=== PATIENT | female | born 1940 | race Asian ===

== ENCOUNTER 2017-03-23 09:59 | Inpatient (IN) | payer MEDICARE, OTHER ==
[~2017-03-23] VITALS: Ht 160 cm; Wt 56.2 kg
[~2017-03-23 09:59] MED LIST: ASPI-1159 PO; CALC667C4 PO; DORZ10DR9; MINO2.5T19; MONT10TA24 PO; NEPVIT PO; OMEP20CA4; PRAV40TA PO; PRED10DR OP; TIMO15DR12 LEFTEYE; XALAO RIGHTEYE
[2017-03-23] MEDS ORDERED: IPRATROPIUM/ALBUTEROL 0.5-3(2.5)MG/3ML NEB HHN ONE (10:45)
[2017-03-23] MEDS ORDERED: LEVOFLOXACIN 750MG PREMIX 150 ML IV ONE (10:45)
[2017-03-23 11:16] LABS: BASOPHILS % 1.1 % (0.0-2.0); EOSINOPHILS % 0.6 % (0.0-5.0); HEMATOCRIT. 33.9 % (36.0-48.0); HEMOGLOBIN. 11.4 g/dL (12.0-16.0); LYMPHOCYTES % 8.4 % (20.0-50.0); MEAN CORPUSCULAR VOLUME 94.8 fL (81.0-99.0); MEAN PLATELET VOLUME 8.6 fl (7.4-10.4); MONOCYTES % 9.3 % (2.0-8.0); NEUTROPHILS % 80.6 % (40.0-76.0); PLATELET 133 x1000/uL (130-400); RED BLOOD CELL COUNT 3.57 mill/uL (4.2-5.4); RED CELL DISTRIBUTION WIDTH 17.6 % (11.6-14.6)
[2017-03-23 11:27] LABS: D-DIMER 2.07 mg/L FEU (<0.50); INR 1.1; PARTIAL THROMBOPLASTIN TIME 25.5 sec (23.4-31.0); PROTHROMBIN TIME 11.8 sec (9.4-11.6)
[2017-03-23 11:34] LABS: CARBON DIOXIDE 34 mEq/L (21-32); CHLORIDE 96 mEq/L (98-107); CREATINE KINASE 111 IU/L (26-192); TROPONIN I 0.03 ng/mL (0.00-0.04)
[2017-03-23 14:01] VITALS: BP 177/68
[2017-03-23] MEDS ORDERED: ALBUTEROL (0.083%) 2.5MG/3ML NEB HHN PRN (15:45)
[2017-03-23 16:00] VITALS: BP 162/69
[2017-03-23] MEDS ORDERED: BISACODYL 5MG TABLET PO PRN (16:15)
[2017-03-23] MEDS ORDERED: ACETAMINOPHEN 325MG TABLET PO PRN (16:30)
[2017-03-23] MEDS ORDERED: SORBITOL 70% SOLN 30ML PO PRN (16:30)
[2017-03-23] MEDS ORDERED: ONDANSETRON HCL 4MG/2ML VIAL IV PRN (16:30)
[2017-03-23] MEDS ORDERED: DEXTROSE 50% WATER 50ML SYRINGE IV PRN ×2 (16:30→22:15)
[2017-03-23] MEDS: DOCUSATE SODIUM 100MG CAPSULE PO SCH (17:00)
[2017-03-23] MEDS: BLOOD SUGAR DIAGNOSTIC STRIP TEST SCH ×2 (17:20→21:00)
[2017-03-23] MEDS: INSULIN LISPRO 100 UNITS/ML SUBCUT SCH ×2 (17:20→22:10)
[2017-03-23] MEDS: MONTELUKAST SODIUM 10MG TABLET PO SCH (18:00)
[2017-03-23] MEDS: CALCIUM ACETATE 667MG CAPSULE PO SCH (18:20)
[2017-03-23] MEDS: METHYLPREDNISOLONE SOD SUCC 40 MG/ML VIAL IV SCH (19:20)
[2017-03-23 20:00] VITALS: BP_SYST 132; BP_SYST 160; BP_DIAS 65; BP_DIAS 67
[2017-03-23] MEDS: FLUOROMETHOLONE 0.1% LEFTEYE SCH (20:31)
[2017-03-23] MEDS ORDERED: SULFAMETHOXAZOLE/TRIMETHOPRIM 800/160MG TABLET PO SCH (21:00)
[2017-03-23] MEDS ORDERED: AMIODARONE HCL 200 MG TABLET PO SCH (21:00)
[2017-03-23 22:00] VITALS: BP 148/56
[2017-03-23] MEDS: ATORVASTATIN CALCIUM 40MG TABLET PO SCH (22:00)
[2017-03-23] MEDS: MINOXIDIL 2.5MG TABLET PO SCH (22:01)
[2017-03-23] MEDS: DORZOLAM/TIMOLOL 2.23/0.68% OPHTH DROPS 10ML LEFTEYE SCH (22:01)
[2017-03-23] MEDS: GUAIFENESIN 600MG ER TABLET PO SCH (22:10)
[2017-03-24] VITALS (11 sets, daily range): BP systolic 126–167; BP diastolic 41–74
[2017-03-24] MEDS: CEFTRIAXONE 1 G PREMIX 50 ML IV SCH ×2 (00:43→22:11)
[2017-03-24] MEDS: FLUOROMETHOLONE 0.1% LEFTEYE SCH ×5 (00:44→23:11)
[2017-03-24] MEDS: BENZONATATE 100MG CAPSULE PO PRN ×2 (01:23→14:38)
[2017-03-24] MEDS: ZOLPIDEM TARTRATE 5MG TABLET PO PRN (01:23)
[2017-03-24] MEDS: IPRATROPIUM/ALBUTEROL 0.5-3(2.5)MG/3ML NEB HHN SCH ×6 (04:45→20:02)
[2017-03-24] MEDS ORDERED: LEVOFLOXACIN 250MG PREMIX 50 ML IV SCH (06:00)
[2017-03-24] MEDS: METHYLPREDNISOLONE SOD SUCC 40 MG/ML VIAL IV SCH ×2 (06:15→17:26)
[2017-03-24] MEDS: BLOOD SUGAR DIAGNOSTIC STRIP TEST SCH ×4 (06:22→21:54)
[2017-03-24 07:10] LABS: HEMOGLOBIN. 11.7 g/dL (12.0-16.0); MEAN CORPUSCULAR HEMOGLOBIN 32.1 pg (28.0-32.0); MEAN PLATELET VOLUME 9.6 fl (7.4-10.4); PLATELET 142 x1000/uL (130-400); RED BLOOD CELL COUNT 3.65 mill/uL (4.2-5.4); RED CELL DISTRIBUTION WIDTH 16.9 % (11.6-14.6)
[2017-03-24] MEDS ORDERED: INSULIN LISPRO 100 UNITS/ML SUBCUT SCH (07:20)
[2017-03-24 07:39] LABS: CARBON DIOXIDE 31 mEq/L (21-32); CHLORIDE 98 mEq/L (98-107); PHOSPHORUS 1.5 mg/dL (2.5-4.9); TROPONIN I < 0.02 ng/mL (0.00-0.04)
[2017-03-24] MEDS: CALCIUM ACETATE 667MG CAPSULE PO SCH ×3 (08:23→17:26)
[2017-03-24] MEDS: ASPIRIN 81MG TABLET PO SCH (08:48)
[2017-03-24] MEDS: DOCUSATE SODIUM 100MG CAPSULE PO SCH ×2 (08:49→17:04)
[2017-03-24] MEDS: JANUVIA 100 MG TABLET PO SCH (08:49)
[2017-03-24] MEDS: FOLIC ACID/VITAMIN B COMP W-C TABLET PO SCH (08:49)
[2017-03-24] MEDS: GUAIFENESIN 600MG ER TABLET PO SCH ×2 (08:49→22:12)
[2017-03-24] MEDS: MINOXIDIL 2.5MG TABLET PO SCH ×2 (08:50→22:11)
[2017-03-24] MEDS ORDERED: LINAGLIPTIN 5MG TABLET PO SCH (09:00)
[2017-03-24] MEDS ORDERED: JANUVIA 100 MG PO SCH (09:00)
[2017-03-24] MEDS: DORZOLAM/TIMOLOL 2.23/0.68% OPHTH DROPS 10ML LEFTEYE SCH ×2 (09:22→22:11)
[2017-03-24 11:20] LABS: BG BASE EXCESS 3.4 mmol/L (-2.0-2.0); BG CARBOXYHEMOGLOBIN 1.5 % (0.5-1.5); BG DEOXYHEMOGLOBIN 6.9 % (0.0-5.0); BG FRACTION INSPIRED OXYGEN 21; BG HCO3 ACT 27.4 mmol/L (22.0-26.0); BG METHEMOGLOBIN 0.1 % (0.0-1.5); BG OXYHEMOGLOBIN 91.5 % (94.0-97.0); BG PCO2 39.2 mmHg (35.0-45.0); BG PH 7.462 (7.350-7.450); BG PO2 64.3 mmHg (75.0-100.0); BG SAMPLE SITE LEFT BRACHIAL; BG TOTAL HEMOGLOBIN 12.1 g/dL (12.0-18.0); BG VENT MODE ROOM AIR
[2017-03-24] MEDS ORDERED: SODIUM CHLORIDE 0.9% 10ML VIAL ONE (12:07)
[2017-03-24] MEDS ORDERED: IOHEXOL-350 100 ML BOTTLE ONE (12:07)
[2017-03-24] MEDS: INSULIN LISPRO 100 UNITS/ML SUBCUT SCH ×3 (12:57→22:15)
[2017-03-24] MEDS: MONTELUKAST SODIUM 10MG TABLET PO SCH (17:04)
[2017-03-24 22:06] LABS: PLATELET ESTIMATE NORMAL
[2017-03-24] MEDS: ATORVASTATIN CALCIUM 40MG TABLET PO SCH (22:12)
[2017-03-24] MEDS: GUAIFENESIN/CODEINE 200-20MG/10ML UDC PO PRN (23:11)
[2017-03-25] VITALS (12 sets, daily range): BP systolic 112–168; BP diastolic 39–71
[2017-03-25] MEDS: IPRATROPIUM/ALBUTEROL 0.5-3(2.5)MG/3ML NEB HHN SCH ×6 (00:22→20:13)
[2017-03-25] MEDS ORDERED: LEVOFLOXACIN 250MG PREMIX 50 ML IV SCH (06:00)
[2017-03-25] MEDS: FLUOROMETHOLONE 0.1% LEFTEYE SCH ×4 (06:07→23:29)
[2017-03-25] MEDS: BLOOD SUGAR DIAGNOSTIC STRIP TEST SCH ×4 (06:07→20:39)
[2017-03-25] MEDS: METHYLPREDNISOLONE SOD SUCC 40 MG/ML VIAL IV SCH ×2 (06:07→06:10)
[2017-03-25] MEDS: FOLIC ACID/VITAMIN B COMP W-C TABLET PO SCH (08:04)
[2017-03-25] MEDS: GUAIFENESIN 600MG ER TABLET PO SCH ×2 (08:04→20:41)
[2017-03-25] MEDS: CALCIUM ACETATE 667MG CAPSULE PO SCH ×3 (08:04→17:21)
[2017-03-25] MEDS: ASPIRIN 81MG TABLET PO SCH (08:04)
[2017-03-25] MEDS: MINOXIDIL 2.5MG TABLET PO SCH ×2 (08:04→20:41)
[2017-03-25] MEDS: DOCUSATE SODIUM 100MG CAPSULE PO SCH ×2 (08:04→17:21)
[2017-03-25 08:05] LABS: HEMATOCRIT. 34.4 % (36.0-48.0); HEMOGLOBIN. 11.4 g/dL (12.0-16.0); MEAN CORPUSCULAR HEMOGLOBIN 31.8 pg (28.0-32.0); MEAN CORPUSCULAR VOLUME 95.7 fL (81.0-99.0); MEAN PLATELET VOLUME 8.9 fl (7.4-10.4); PLATELET 156 x1000/uL (130-400); RED BLOOD CELL COUNT 3.59 mill/uL (4.2-5.4); RED CELL DISTRIBUTION WIDTH 17.6 % (11.6-14.6)
[2017-03-25] MEDS: DORZOLAM/TIMOLOL 2.23/0.68% OPHTH DROPS 10ML LEFTEYE SCH ×2 (08:05→20:41)
[2017-03-25] MEDS: JANUVIA 100 MG TABLET PO SCH (08:05)
[2017-03-25] MEDS: INSULIN LISPRO 100 UNITS/ML SUBCUT SCH ×4 (08:06→20:39)
[2017-03-25 09:49] LABS: PLATELET ESTIMATE NORMAL
[2017-03-25] MEDS: GUAIFENESIN/CODEINE 200-20MG/10ML UDC PO PRN (11:29)
[2017-03-25] MEDS: MONTELUKAST SODIUM 10MG TABLET PO SCH (17:21)
[2017-03-25] MEDS: PREDNISONE 20MG TABLET PO SCH (17:22)
[2017-03-25] MEDS: CEFTRIAXONE 1 G PREMIX 50 ML IV SCH (20:40)
[2017-03-25] MEDS: ATORVASTATIN CALCIUM 40MG TABLET PO SCH (20:41)
[2017-03-25] MEDS: BENZONATATE 100MG CAPSULE PO PRN (20:43)
[2017-03-25] MEDS: ZOLPIDEM TARTRATE 5MG TABLET PO PRN (23:41)
[2017-03-26] VITALS (11 sets, daily range): BP systolic 131–172; BP diastolic 46–79
[2017-03-26] MEDS: IPRATROPIUM/ALBUTEROL 0.5-3(2.5)MG/3ML NEB HHN SCH ×5 (00:15→13:04)
[2017-03-26] MEDS ORDERED: HYDRALAZINE 20MG/ML VIAL IV PRN (04:00)
[2017-03-26] MEDS: BLOOD SUGAR DIAGNOSTIC STRIP TEST SCH ×4 (06:27→20:48)
[2017-03-26] MEDS: FLUOROMETHOLONE 0.1% LEFTEYE SCH ×4 (06:27→23:31)
[2017-03-26 07:36] LABS: HEMATOCRIT. 35.1 % (36.0-48.0); HEMOGLOBIN. 11.7 g/dL (12.0-16.0); MEAN CORPUSCULAR HEMOGLOBIN 32.1 pg (28.0-32.0); MEAN CORPUSCULAR VOLUME 96.6 fL (81.0-99.0); MEAN PLATELET VOLUME 9.1 fl (7.4-10.4); PLATELET 167 x1000/uL (130-400); RED BLOOD CELL COUNT 3.63 mill/uL (4.2-5.4); RED CELL DISTRIBUTION WIDTH 17.7 % (11.6-14.6)
[2017-03-26] MEDS: PREDNISONE 20MG TABLET PO SCH ×2 (07:53→17:31)
[2017-03-26] MEDS: INSULIN LISPRO 100 UNITS/ML SUBCUT SCH ×4 (07:53→22:02)
[2017-03-26] MEDS: CALCIUM ACETATE 667MG CAPSULE PO SCH ×3 (07:53→17:31)
[2017-03-26 08:22] LABS: CARBON DIOXIDE 32 mEq/L (21-32); CHLORIDE 94 mEq/L (98-107); TROPONIN I < 0.02 ng/mL (0.00-0.04)
[2017-03-26] MEDS: GUAIFENESIN 600MG ER TABLET PO SCH ×2 (08:53→21:58)
[2017-03-26] MEDS: FOLIC ACID/VITAMIN B COMP W-C TABLET PO SCH (08:53)
[2017-03-26] MEDS: DOCUSATE SODIUM 100MG CAPSULE PO SCH ×2 (08:53→17:31)
[2017-03-26] MEDS: ASPIRIN 81MG TABLET PO SCH (08:53)
[2017-03-26] MEDS: JANUVIA 100 MG TABLET PO SCH (08:54)
[2017-03-26] MEDS: MINOXIDIL 2.5MG TABLET PO SCH ×2 (08:54→21:59)
[2017-03-26] MEDS: DORZOLAM/TIMOLOL 2.23/0.68% OPHTH DROPS 10ML LEFTEYE SCH ×2 (08:54→22:00)
[2017-03-26 12:14] LABS: PLATELET ESTIMATE NORMAL
[2017-03-26] MEDS: MONTELUKAST SODIUM 10MG TABLET PO SCH (17:31)
[2017-03-26] MEDS: FLUTICASONE/VILANTEROL 200-25 BLST.W.DEV ORI SCH (21:54)
[2017-03-26] MEDS: CEFTRIAXONE 1 G PREMIX 50 ML IV SCH (21:59)
[2017-03-26] MEDS: ATORVASTATIN CALCIUM 20MG TABLET PO SCH (21:59)
[2017-03-26] MEDS: ZOLPIDEM TARTRATE 5MG TABLET PO PRN (23:29)
[2017-03-27] VITALS (14 sets, daily range): BP systolic 128–183; BP diastolic 50–83
[2017-03-27] MEDS: FLUOROMETHOLONE 0.1% LEFTEYE SCH ×4 (05:18→23:00)
[2017-03-27] MEDS: BLOOD SUGAR DIAGNOSTIC STRIP TEST SCH ×4 (06:48→20:04)
[2017-03-27 07:47] LABS: HEMATOCRIT. 36.9 % (36.0-48.0); HEMOGLOBIN. 12.2 g/dL (12.0-16.0); MEAN CORPUSCULAR HEMOGLOBIN 32.3 pg (28.0-32.0); MEAN CORPUSCULAR VOLUME 97.6 fL (81.0-99.0); MEAN PLATELET VOLUME 8.7 fl (7.4-10.4); PLATELET 152 x1000/uL (130-400); RED BLOOD CELL COUNT 3.78 mill/uL (4.2-5.4); RED CELL DISTRIBUTION WIDTH 18.1 % (11.6-14.6)
[2017-03-27] MEDS: INSULIN LISPRO 100 UNITS/ML SUBCUT SCH ×4 (07:51→21:03)
[2017-03-27] MEDS: PREDNISONE 20MG TABLET PO SCH ×2 (07:51→16:47)
[2017-03-27] MEDS: CALCIUM ACETATE 667MG CAPSULE PO SCH (07:52)
[2017-03-27] MEDS: GUAIFENESIN 600MG ER TABLET PO SCH ×2 (08:02→21:06)
[2017-03-27] MEDS: FOLIC ACID/VITAMIN B COMP W-C TABLET PO SCH (08:02)
[2017-03-27] MEDS: ASPIRIN 81MG TABLET PO SCH (08:02)
[2017-03-27] MEDS: DOCUSATE SODIUM 100MG CAPSULE PO SCH ×2 (08:03→16:46)
[2017-03-27] MEDS: MINOXIDIL 2.5MG TABLET PO SCH ×2 (08:05→21:06)
[2017-03-27] MEDS: DORZOLAM/TIMOLOL 2.23/0.68% OPHTH DROPS 10ML LEFTEYE SCH ×2 (08:06→21:05)
[2017-03-27] MEDS: FLUTICASONE/VILANTEROL 200-25 BLST.W.DEV ORI SCH (08:07)
[2017-03-27] MEDS: LINAGLIPTIN 5MG TABLET PO SCH (13:05)
[2017-03-27] MEDS: AMLODIPINE 5MG TABLET PO SCH ×2 (13:05→21:04)
[2017-03-27 14:09] LABS: PLATELET ESTIMATE NORMAL
[2017-03-27] MEDS: MONTELUKAST SODIUM 10MG TABLET PO SCH (16:47)
[2017-03-27] MEDS: ATORVASTATIN CALCIUM 20MG TABLET PO SCH (21:05)
[2017-03-27] MEDS: CEFTRIAXONE 1 G PREMIX 50 ML IV SCH (21:26)
[2017-03-27] MEDS: GUAIFENESIN/CODEINE 200-20MG/10ML UDC PO PRN (23:00)
[2017-03-28] VITALS (11 sets, daily range): BP systolic 142–174; BP diastolic 55–69
[2017-03-28] MEDS: FLUOROMETHOLONE 0.1% LEFTEYE SCH ×2 (05:51→12:59)
[2017-03-28] MEDS: BLOOD SUGAR DIAGNOSTIC STRIP TEST SCH ×3 (05:53→16:50)
[2017-03-28] MEDS: DORZOLAM/TIMOLOL 2.23/0.68% OPHTH DROPS 10ML LEFTEYE SCH (08:09)
[2017-03-28] MEDS: FLUTICASONE/VILANTEROL 200-25 BLST.W.DEV ORI SCH (08:13)
[2017-03-28] MEDS: DOCUSATE SODIUM 100MG CAPSULE PO SCH ×2 (08:14→16:51)
[2017-03-28] MEDS: ASPIRIN 81MG TABLET PO SCH (08:14)
[2017-03-28] MEDS: GUAIFENESIN 600MG ER TABLET PO SCH (08:14)
[2017-03-28] MEDS: INSULIN LISPRO 100 UNITS/ML SUBCUT SCH ×3 (08:14→16:51)
[2017-03-28] MEDS: FOLIC ACID/VITAMIN B COMP W-C TABLET PO SCH (08:14)
[2017-03-28] MEDS: PREDNISONE 20MG TABLET PO SCH (08:14)
[2017-03-28] MEDS: LINAGLIPTIN 5MG TABLET PO SCH (08:14)
[2017-03-28] MEDS: AMLODIPINE 5MG TABLET PO SCH (08:15)
[2017-03-28] MEDS: MINOXIDIL 2.5MG TABLET PO SCH (08:16)
[2017-03-28] MEDS ORDERED: MINOXIDIL 2.5MG TABLET PO SCH (14:00)
[2017-03-28] MEDS: MONTELUKAST SODIUM 10MG TABLET PO SCH (16:50)
[2017-03-28] MEDS ORDERED: INSULIN DETEMIR UD 100 UNITS/ML SYR SUBCUT SCH (22:00)
[2017-03-29] MEDS ORDERED: PREDNISONE 20MG TABLET PO SCH (07:20)
== END 2017-03-28 17:15 | disposition home or self-care (01) | DRG 291 ==
LOC: ER 10:41 → 3WST 12:16 → EDBEDREQ 12:19 → ENRESERV 12:54
PROVIDERS: ADMIT Internal Medicine Nephrology; ATTEND Internal Medicine Nephrology
PROC: 5A1D60Z (ICD-10-PCS; principal; 2017-03-24)
DX: I50.43 Acute on chronic combined systolic (congestive) and diastolic (congestive) heart failure (principal); J96.90 Respiratory failure, unspecified, unspecified whether with hypoxia or hypercapnia; J18.9 Pneumonia, unspecified organism; I27.2 Other secondary pulmonary hypertension; N18.6 End stage renal disease; J44.0 Chronic obstructive pulmonary disease with (acute) lower respiratory infection; E11.21 Type 2 diabetes mellitus with diabetic nephropathy; E11.65 Type 2 diabetes mellitus with hyperglycemia; I13.2 Hypertensive heart and chronic kidney disease with heart failure and with stage 5 chronic kidney disease, or end stage renal disease; J45.909 Unspecified asthma, uncomplicated; I45.81 Long QT syndrome; R00.1 Bradycardia, unspecified; I48.0 Paroxysmal atrial fibrillation; E21.3 Hyperparathyroidism, unspecified; J20.9 Acute bronchitis, unspecified; R79.1 Abnormal coagulation profile; D63.1 Anemia in chronic kidney disease; E78.5 Hyperlipidemia, unspecified; E11.22 Type 2 diabetes mellitus with diabetic chronic kidney disease; I25.10 Atherosclerotic heart disease of native coronary artery without angina pectoris; Z82.49 Family history of ischemic heart disease and other diseases of the circulatory system; Z83.3 Family history of diabetes mellitus; Z87.01 Personal history of pneumonia (recurrent); Z79.899 Other long term (current) drug therapy; Z99.2 Dependence on renal dialysis; Z99.81 Dependence on supplemental oxygen; Z79.82 Long term (current) use of aspirin; Z91.048 Other nonmedicinal substance allergy status; Z79.84 Long term (current) use of oral hypoglycemic drugs
CPT/HCPCS: 36415; 36600; 71010; 71275; 80048; 80053; 82375; 82550; 82805; 82962; 83036; 83605; 83690; 83735; 83880; 84100; 84443; 84484; 85025; 85379; 85610; 85730; 87040; 93005; 93306; 94640; 94664; 94760; 96365; 96366; 97162; 99285; A4216; J0360; J0696; J1815; J1956; J2405; J2920; J7030; J7050; J7512; J7611; J7620; Q9967

== ENCOUNTER 2017-10-16 09:33 | Inpatient (IN) | payer MEDICARE, OTHER ==
[~2017-10-16] VITALS: Ht 165.1 cm; Wt 56.7 kg
[2017-10-16] VITALS (36 sets, daily range): BP systolic 98–149; BP diastolic 39–111
[2017-10-16] MEDS ORDERED: DEXTROSE 50% WATER 50ML SYRINGE IV ONE (10:30)
[2017-10-16] MEDS ORDERED: SODIUM BICARBONATE 8.4% 1 MEQ/ML 50ML SYR IV ONE (10:30)
[2017-10-16] MEDS ORDERED: INSULIN REGULAR (HUMULIN R) 300UNITS/3ML IV ONE (10:30)
[2017-10-16] MEDS ORDERED: CALCIUM CHLORIDE 1GM/10ML SYR IV ONE (10:30)
[2017-10-16 10:32] LABS: BG BASE EXCESS 2.6 mmol/L (-2.0-2.0); BG CARBOXYHEMOGLOBIN 1.1 % (0.5-1.5); BG DEOXYHEMOGLOBIN 6.9 % (0.0-5.0); BG HCO3 ACT 26.3 mmol/L (22.0-26.0); BG METHEMOGLOBIN 0.3 % (0.0-1.5); BG OXYHEMOGLOBIN 91.7 % (94.0-97.0); BG PCO2 37.2 mmHg (35.0-45.0); BG PH 7.467 (7.350-7.450); BG SAMPLE SITE LEFT RADIAL; BG VENT MODE ROOM AIR
[2017-10-16 10:54] LABS: BASOPHILS % 0.9 % (0.0-2.0); EOSINOPHILS % 1.6 % (0.0-5.0); HEMATOCRIT. 33.7 % (36.0-48.0); HEMOGLOBIN. 11.6 g/dL (12.0-16.0); LYMPHOCYTES % 9.7 % (20.0-50.0); MEAN CORPUSCULAR HEMOGLOBIN 34.6 pg (28.0-32.0); MEAN CORPUSCULAR VOLUME 100.4 fL (81.0-99.0); MEAN PLATELET VOLUME 8.4 fl (7.4-10.4); MONOCYTES % 8.7 % (2.0-8.0); NEUTROPHILS % 79.1 % (40.0-76.0); PLATELET 217 x1000/uL (130-400); RED BLOOD CELL COUNT 3.36 mill/uL (4.2-5.4); RED CELL DISTRIBUTION WIDTH 14.6 % (11.6-14.6)
[2017-10-16 11:03] LABS: CHLORIDE 93 mEq/L (98-107)
[2017-10-16 11:09] LABS: PHOSPHORUS 5.1 mg/dL (2.5-4.9)
[2017-10-16 11:13] LABS: PARTIAL THROMBOPLASTIN TIME 26.6 sec (23.4-31.0); PROTHROMBIN TIME 10.8 sec (9.4-11.6)
[2017-10-16] MEDS ORDERED: DOPAMINE 400MG PREMIX 250 ML IV ONE (13:15)
[2017-10-16] MEDS ORDERED: HYDRALAZINE 20MG/ML VIAL IV PRN (14:00)
[2017-10-16] MEDS ORDERED: ONDANSETRON HCL 4MG/2ML VIAL IV NR (14:15)
[2017-10-16] MEDS ORDERED: ONDANSETRON HCL 4MG/2ML VIAL IV PRN (14:30)
[2017-10-16] MEDS ORDERED: IPRATROPIUM/ALBUTEROL 0.5-3(2.5)MG/3ML NEB INH PRN (14:30)
[2017-10-16] MEDS ORDERED: MAGNESIUM/ALUMINUM HYDROXIDE/SIMETHICONE 30ML UDC PO PRN (14:30)
[2017-10-16] MEDS ORDERED: GUAIFENESIN 200MG/10ML SUGAR FREE UDC PO PRN (14:30)
[2017-10-16] MEDS ORDERED: DEXTROSE 50% WATER 50ML SYRINGE IV PRN (15:30)
[2017-10-16] MEDS: BLOOD SUGAR DIAGNOSTIC STRIP TEST SCH ×2 (17:00→21:25)
[2017-10-16] MEDS: INSULIN LISPRO 100 UNITS/ML SUBCUT SCH ×2 (18:37→21:27)
[2017-10-16] MEDS: AMLODIPINE 5MG TABLET PO SCH (21:28)
[2017-10-17] VITALS (53 sets, daily range): BP systolic 55–162; BP diastolic 28–70
[2017-10-17 05:52] LABS: CHLORIDE 93 mEq/L (98-107)
[2017-10-17 06:00] LABS: PHOSPHORUS 4.8 mg/dL (2.5-4.9)
[2017-10-17 06:28] LABS: BASOPHILS % 1.1 % (0.0-2.0); EOSINOPHILS % 1.3 % (0.0-5.0); HEMOGLOBIN. 11.5 g/dL (12.0-16.0); LYMPHOCYTES % 8.4 % (20.0-50.0); MEAN CORPUSCULAR HEMOGLOBIN 34.5 pg (28.0-32.0); MEAN CORPUSCULAR VOLUME 98.9 fL (81.0-99.0); MEAN PLATELET VOLUME 9.1 fl (7.4-10.4); MONOCYTES % 9.1 % (2.0-8.0); NEUTROPHILS % 80.1 % (40.0-76.0); PLATELET 227 x1000/uL (130-400); RED BLOOD CELL COUNT 3.33 mill/uL (4.2-5.4); RED CELL DISTRIBUTION WIDTH 14.5 % (11.6-14.6)
[2017-10-17] MEDS: BLOOD SUGAR DIAGNOSTIC STRIP TEST SCH ×4 (06:30→21:00)
[2017-10-17] MEDS: OMEPRAZOLE 20MG CAPSULE EXTENDED RELEASE PO SCH (06:30)
[2017-10-17] MEDS: INSULIN LISPRO 100 UNITS/ML SUBCUT SCH ×5 (07:00→21:14)
[2017-10-17] MEDS: AMLODIPINE 5MG TABLET PO SCH ×2 (08:01→20:32)
[2017-10-17] MEDS: FOLIC ACID/VITAMIN B COMP W-C TABLET PO SCH (11:20)
[2017-10-17] MEDS: SEVELAMER CARBONATE 800 MG TABLET PO SCH ×3 (11:20→18:46)
[2017-10-17] MEDS ORDERED: ALBUTEROL (0.083%) 2.5MG/3ML NEB HHN SCH (14:00)
[2017-10-17] MEDS ORDERED: BUDESONIDE 0.5MG/2ML NEB HHN SCH (15:00)
[2017-10-17] MEDS: ATORVASTATIN CALCIUM 20MG TABLET PO SCH (21:03)
[2017-10-17] MEDS: MONTELUKAST SODIUM 10MG TABLET PO SCH (21:04)
[2017-10-17] MEDS: LATANOPROST 0.005% OPHTH DROPS 2.5ML RIGHTEYE SCH (22:20)
[2017-10-18] VITALS: BP 153/50
[2017-10-18] MEDS ORDERED: ACETAMINOPHEN 325MG TABLET PO PRN (01:15)
[2017-10-18] MEDS ORDERED: HYDROCODONE/ACETAMINOPHEN 5/325MG TABLET PO PRN (01:15)
[2017-10-18 04:00] VITALS: BP 124/48
[2017-10-18] MEDS: BLOOD SUGAR DIAGNOSTIC STRIP TEST SCH ×4 (06:37→20:29)
[2017-10-18] MEDS: INSULIN LISPRO 100 UNITS/ML SUBCUT SCH ×4 (06:38→20:30)
[2017-10-18] MEDS: OMEPRAZOLE 20MG CAPSULE EXTENDED RELEASE PO SCH (06:51)
[2017-10-18 07:43] LABS: EOSINOPHILS % 1.9 % (0.0-5.0); HEMATOCRIT. 31.9 % (36.0-48.0); LYMPHOCYTES % 13.4 % (20.0-50.0); MEAN CORPUSCULAR HEMOGLOBIN 34.2 pg (28.0-32.0); MEAN CORPUSCULAR VOLUME 99.6 fL (81.0-99.0); MEAN PLATELET VOLUME 8.7 fl (7.4-10.4); MONOCYTES % 12.9 % (2.0-8.0); NEUTROPHILS % 70.8 % (40.0-76.0); PLATELET 179 x1000/uL (130-400); RED BLOOD CELL COUNT 3.21 mill/uL (4.2-5.4); RED CELL DISTRIBUTION WIDTH 14.6 % (11.6-14.6)
[2017-10-18 07:53] LABS: PHOSPHORUS 4.5 mg/dL (2.5-4.9)
[2017-10-18 08:33] VITALS: BP 110/58
[2017-10-18] MEDS: AMLODIPINE 5MG TABLET PO SCH ×2 (09:00→20:47)
[2017-10-18] MEDS: SEVELAMER CARBONATE 800 MG TABLET PO SCH ×3 (10:21→16:54)
[2017-10-18] MEDS: FOLIC ACID/VITAMIN B COMP W-C TABLET PO SCH (10:21)
[2017-10-18 12:00] VITALS: BP 168/55
[2017-10-18] MEDS ORDERED: BRIN8DRO OP (12:51)
[2017-10-18 13:14] LABS: HEPATITIS B SURFACE ANTIGEN NEGATIVE
[2017-10-18 13:42] LABS: HEPATITIS B CORE AB IGM NEGATIVE
[2017-10-18 13:44] LABS: HEPATITIS A AB IGM NEGATIVE (NEGATIVE)
[2017-10-18 16:04] VITALS: BP 162/58
[2017-10-18 20:00] VITALS: BP 124/37
[2017-10-18] MEDS: MONTELUKAST SODIUM 10MG TABLET PO SCH (20:46)
[2017-10-18] MEDS: ATORVASTATIN CALCIUM 20MG TABLET PO SCH (20:46)
[2017-10-18] MEDS: LATANOPROST 0.005% OPHTH DROPS 2.5ML RIGHTEYE SCH (20:46)
[2017-10-19 04:00] VITALS: BP 130/38
[2017-10-19] MEDS: INSULIN LISPRO 100 UNITS/ML SUBCUT SCH ×2 (06:09→11:50)
[2017-10-19] MEDS: BLOOD SUGAR DIAGNOSTIC STRIP TEST SCH ×2 (06:09→11:50)
[2017-10-19] MEDS: OMEPRAZOLE 20MG CAPSULE EXTENDED RELEASE PO SCH (06:16)
[2017-10-19 07:46] LABS: BASOPHILS % 0.7 % (0.0-2.0); EOSINOPHILS % 1.5 % (0.0-5.0); HEMATOCRIT. 31.4 % (36.0-48.0); HEMOGLOBIN. 10.6 g/dL (12.0-16.0); LYMPHOCYTES % 11.7 % (20.0-50.0); MEAN CORPUSCULAR HEMOGLOBIN 33.7 pg (28.0-32.0); MEAN CORPUSCULAR VOLUME 99.7 fL (81.0-99.0); MEAN PLATELET VOLUME 8.6 fl (7.4-10.4); NEUTROPHILS % 75.1 % (40.0-76.0); PLATELET 161 x1000/uL (130-400); RED BLOOD CELL COUNT 3.15 mill/uL (4.2-5.4); RED CELL DISTRIBUTION WIDTH 14.3 % (11.6-14.6)
[2017-10-19 08:00] VITALS: BP 162/45
[2017-10-19] MEDS: AMLODIPINE 5MG TABLET PO SCH (08:09)
[2017-10-19] MEDS: FOLIC ACID/VITAMIN B COMP W-C TABLET PO SCH (08:10)
[2017-10-19] MEDS: SEVELAMER CARBONATE 800 MG TABLET PO SCH ×2 (08:10→11:50)
[2017-10-19 08:38] LABS: CHLORIDE 101 mEq/L (98-107)
[2017-10-19 12:00] VITALS: BP 178/61
[2017-10-19 13:51] VITALS: BP 143/61
[2017-10-19 16:00] VITALS: BP 166/69
[2017-10-19 18:06] LABS: TOTAL IRON BINDING CAPACITY 252 ug/dL (250-450)
[2017-10-19 18:20] LABS: FOLIC ACID (FOLATE) SERUM >20 ng/mL ng/mL (>5.38)
[2017-10-19 18:21] LABS: FERRITIN 761 ng/mL (10-291)
[2017-10-19 18:36] LABS: VITAMIN B12 SERUM > 2000.0 pg/mL (211-911)
[2017-10-20] MEDS ORDERED: FAMOTIDINE 20MG TABLET PO SCH (09:00)
== END 2017-10-19 17:20 | disposition home or self-care (01) | DRG 640 ==
LOC: ER 10:40 → SUPCPDRO 11:38 → MICUSO 13:12 → EDBEDREQTM 13:14 → EDBEDREQSVC 13:14 → ENRESERV 13:41 → 8WST 10-17 17:29
PROVIDERS: ADMIT Family Medicine Adult Medicine; ATTEND Family Medicine Adult Medicine
PROC: 05HY33Z Insertion of Infusion Device into Upper Vein, Percutaneous Approach (ICD-10-PCS; principal; 2017-10-16)
PROC: 5A1D70Z Performance of Urinary Filtration, Intermittent, Less than 6 Hours Per Day (ICD-10-PCS; 2017-10-16)
PROC: 5A1D70Z Performance of Urinary Filtration, Intermittent, Less than 6 Hours Per Day (ICD-10-PCS; 2017-10-17)
PROC: 5A1D70Z Performance of Urinary Filtration, Intermittent, Less than 6 Hours Per Day (ICD-10-PCS; 2017-10-18)
DX: E87.5 Hyperkalemia (principal); N18.6 End stage renal disease; N17.9 Acute kidney failure, unspecified; E87.2 Acidosis; E11.22 Type 2 diabetes mellitus with diabetic chronic kidney disease; E44.1 Mild protein-calorie malnutrition; I08.1 Rheumatic disorders of both mitral and tricuspid valves; E87.70 Fluid overload, unspecified; G40.909 Epilepsy, unspecified, not intractable, without status epilepticus; I48.0 Paroxysmal atrial fibrillation; I13.11 Hypertensive heart and chronic kidney disease without heart failure, with stage 5 chronic kidney disease, or end stage renal disease; I27.20 Pulmonary hypertension, unspecified; J44.9 Chronic obstructive pulmonary disease, unspecified; E78.00 Pure hypercholesterolemia, unspecified; K76.0 Fatty (change of) liver, not elsewhere classified; R00.1 Bradycardia, unspecified; E78.5 Hyperlipidemia, unspecified; D63.1 Anemia in chronic kidney disease; E03.9 Hypothyroidism, unspecified; Z99.2 Dependence on renal dialysis; Z87.01 Personal history of pneumonia (recurrent); Z79.82 Long term (current) use of aspirin; Z79.899 Other long term (current) drug therapy; Z68.20 Body mass index [BMI] 20.0-20.9, adult
CPT/HCPCS: 36415; 36569; 36600; 71045; 76700; 76937; 80048; 80053; 80076; 82248; 82375; 82607; 82728; 82746; 82805; 82962; 83540; 83550; 83605; 83690; 83735; 83970; 84100; 84439; 84443; 84481; 84484; 85025; 85610; 85730; 86705; 86709; 86803; 87040; 87340; 93005; 93306; 93970; 93971; 96374; 96375; 97116; 97162; 99291; C1725; J0360; J1265; J1815; J2405; J3490; J7030

== ENCOUNTER 2018-08-01 15:57 | Inpatient (IN) | payer MEDICARE, OTHER ==
[~2018-08-01] VITALS: Ht 154.9 cm; Wt 52.2 kg
[~2018-08-01 15:57] MED LIST changes: +BRIN8DRO OP; -DORZ10DR9; -MINO2.5T19; +MINO2.5T19 PO; -TIMO15DR12 LEFTEYE
[2018-08-01 17:06] LABS: BASOPHILS % 0.9 % (0.0-2.0); EOSINOPHILS % 1.7 % (0.0-5.0); HEMATOCRIT. 29.6 % (36.0-48.0); HEMOGLOBIN. 10.1 g/dL (12.0-16.0); LYMPHOCYTES % 9.1 % (20.0-50.0); MEAN CORPUSCULAR HEMOGLOBIN 34.4 pg (28.0-32.0); MEAN CORPUSCULAR VOLUME 100.8 fL (81.0-99.0); MEAN PLATELET VOLUME 8.7 fl (7.4-10.4); MONOCYTES % 12.6 % (2.0-8.0); NEUTROPHILS % 75.7 % (40.0-76.0); PLATELET 109 x1000/uL (130-400); RED BLOOD CELL COUNT 2.93 mill/uL (4.2-5.4); RED CELL DISTRIBUTION WIDTH 15.4 % (11.6-14.6)
[2018-08-01 17:09] LABS: CHLORIDE 98 mEq/L (98-107)
[2018-08-01 17:18] LABS: INR 1.1; PARTIAL THROMBOPLASTIN TIME 26.3 sec (23.4-31.0); PROTHROMBIN TIME 10.9 sec (9.1-11.1)
[2018-08-01] MEDS ORDERED: POTASSIUM CHLORIDE 20MEQ TABLET SR PO ONE (17:45)
[2018-08-01] MEDS ORDERED: ENOXAPARIN 40MG/0.4ML SYR SUBCUT SCH (19:15)
[2018-08-01] MEDS ORDERED: ACETAMINOPHEN 325MG TABLET PO PRN (19:15)
[2018-08-01] MEDS ORDERED: CLONIDINE 0.1MG TABLET PO PRN (19:15)
[2018-08-01] MEDS ORDERED: ONDANSETRON HCL 4MG/2ML INJ IV PRN (19:15)
[2018-08-01] MEDS ORDERED: IPRATROPIUM/ALBUTEROL 0.5-3(2.5)MG/3ML NEB INH PRN (19:15)
[2018-08-01] MEDS ORDERED: MAGNESIUM/ALUMINUM HYDROXIDE/SIMETHICONE 30ML UDC PO PRN (19:15)
[2018-08-01] MEDS ORDERED: HYDROCODONE/ACETAMINOPHEN 10/325MG TABLET PO PRN (19:15)
[2018-08-01] MEDS ORDERED: DIPHENHYDRAMINE 50MG/ML VIAL IV PRN (19:15)
[2018-08-01] MEDS ORDERED: LORAZEPAM 2MG/ML CPJ IV PRN (19:15)
[2018-08-01] MEDS ORDERED: DOCUSATE SODIUM 100MG CAPSULE PO PRN (19:15)
[2018-08-01] MEDS ORDERED: DEXTROSE 50% WATER 50ML SYRINGE IV PRN (19:15)
[2018-08-01] MEDS ORDERED: HYDRALAZINE 20MG/ML VIAL IV PRN (19:15)
[2018-08-01] MEDS: BLOOD SUGAR DIAGNOSTIC STRIP TEST SCH (21:30)
[2018-08-01 23:11] LABS: CREATINE KINASE 141 IU/L (26-192)
[2018-08-01 23:12] LABS: CREATINE KINASE MB FRACTION < 1.0 ng/mL (0.5-3.6)
[2018-08-02] VITALS (7 sets, daily range): BP systolic 127–153; BP diastolic 39–97
[2018-08-02] MEDS ORDERED: HYDROMORPHONE HCL/PF 2MG/ML CPJ IV PRN (00:14)
[2018-08-02] MEDS: BLOOD SUGAR DIAGNOSTIC STRIP TEST SCH ×4 (06:26→20:51)
[2018-08-02] MEDS: SODIUM CHLORIDE 0.9% INJ 3ML FLUSH IVF SCH ×3 (06:26→20:51)
[2018-08-02 07:13] LABS: CHLORIDE 100 mEq/L (98-107)
[2018-08-02 07:30] LABS: BASOPHILS % 1.1 % (0.0-2.0); HEMATOCRIT. 27.2 % (36.0-48.0); HEMOGLOBIN. 9.3 g/dL (12.0-16.0); LDL CHOLESTEROL 36 mg/dL (5-100); LYMPHOCYTES % 12.4 % (20.0-50.0); MEAN CORPUSCULAR HEMOGLOBIN 34.4 pg (28.0-32.0); MEAN CORPUSCULAR VOLUME 100.2 fL (81.0-99.0); MEAN PLATELET VOLUME 9.2 fl (7.4-10.4); MONOCYTES % 13.8 % (2.0-8.0); NEUTROPHILS % 70.7 % (40.0-76.0); PLATELET 108 x1000/uL (130-400); RED BLOOD CELL COUNT 2.72 mill/uL (4.2-5.4); RED CELL DISTRIBUTION WIDTH 15.6 % (11.6-14.6)
[2018-08-02 07:32] LABS: CREATINE KINASE 120 IU/L (26-192); CREATINE KINASE MB FRACTION < 1.0 ng/mL (0.5-3.6)
[2018-08-02 07:33] LABS: HDL CHOLESTEROL 56 mg/dL (40-59); T4 FREE 1.44 ng/dL (0.76-1.46)
[2018-08-02] MEDS: INSULIN LISPRO 100 UNITS/ML SUBCUT SCH ×4 (08:10→20:51)
[2018-08-02] MEDS: ASPIRIN 81MG EC TABLET PO SCH (08:34)
[2018-08-02] MEDS: ENOXAPARIN 30MG/0.3ML SYR SUBCUT SCH (08:34)
[2018-08-02] MEDS ORDERED: FLUTICASONE/VILANTEROL 200-25 BLST.W.DEV ORI SCH (09:00)
[2018-08-02] MEDS: FOLIC ACID/VITAMIN B COMP W-C TABLET PO SCH (10:10)
[2018-08-02] MEDS: AMLODIPINE 2.5MG TABLET PO SCH ×2 (10:11→20:51)
[2018-08-02] MEDS: AMIODARONE HCL 200 MG TABLET PO SCH (10:13)
[2018-08-02] MEDS: SEVELAMER CARBONATE 800 MG TABLET PO SCH ×2 (13:19→17:56)
[2018-08-02] MEDS: ALBUTEROL (0.083%) 2.5MG/3ML NEB HHN SCH ×2 (13:19→20:17)
[2018-08-02] MEDS: BUDESONIDE 0.5MG/2ML NEB HHN SCH ×2 (13:20→20:20)
[2018-08-02] MEDS ORDERED: MEDICATION NOT ON FORMULARY EA (Brinzolamide/Brimonid Tart (Simbrinza 1%-0.2% Eye Drops) OP SCH (17:00)
[2018-08-02] MEDS: OMEPRAZOLE 20MG CAPSULE EXTENDED RELEASE PO SCH (17:55)
[2018-08-02] MEDS: ATORVASTATIN CALCIUM 20MG TABLET PO SCH (20:50)
[2018-08-02] MEDS: LATANOPROST 0.005% OPHTH DROPS 2.5ML BOTHEYE SCH (20:51)
[2018-08-02] MEDS: GUAIFENESIN 200MG/10ML SUGAR FREE UDC PO PRN (23:53)
[2018-08-03] VITALS (7 sets, daily range): BP systolic 125–167; BP diastolic 41–67
[2018-08-03] MEDS: ALBUTEROL (0.083%) 2.5MG/3ML NEB HHN SCH ×4 (00:45→22:20)
[2018-08-03] MEDS: SODIUM CHLORIDE 0.9% INJ 3ML FLUSH IVF SCH ×3 (05:50→20:06)
[2018-08-03 06:56] LABS: EOSINOPHILS % 2.1 % (0.0-5.0); HEMATOCRIT. 27.9 % (36.0-48.0); HEMOGLOBIN. 9.5 g/dL (12.0-16.0); LYMPHOCYTES % 10.2 % (20.0-50.0); MEAN CORPUSCULAR HEMOGLOBIN 34.3 pg (28.0-32.0); MEAN CORPUSCULAR VOLUME 100.7 fL (81.0-99.0); MEAN PLATELET VOLUME 8.9 fl (7.4-10.4); MONOCYTES % 11.2 % (2.0-8.0); NEUTROPHILS % 75.5 % (40.0-76.0); PLATELET 110 x1000/uL (130-400); RED BLOOD CELL COUNT 2.77 mill/uL (4.2-5.4); RED CELL DISTRIBUTION WIDTH 15.8 % (11.6-14.6)
[2018-08-03 07:24] LABS: PHOSPHORUS 2.6 mg/dL (2.5-4.9)
[2018-08-03] MEDS: BLOOD SUGAR DIAGNOSTIC STRIP TEST SCH ×4 (07:40→20:07)
[2018-08-03] MEDS: INSULIN LISPRO 100 UNITS/ML SUBCUT SCH ×4 (08:10→20:07)
[2018-08-03] MEDS: SEVELAMER CARBONATE 800 MG TABLET PO SCH ×3 (08:57→18:31)
[2018-08-03] MEDS: FOLIC ACID/VITAMIN B COMP W-C TABLET PO SCH (08:57)
[2018-08-03] MEDS: ASPIRIN 81MG EC TABLET PO SCH (08:57)
[2018-08-03] MEDS: AMIODARONE HCL 200 MG TABLET PO SCH (08:57)
[2018-08-03] MEDS: AMLODIPINE 2.5MG TABLET PO SCH ×2 (08:57→20:06)
[2018-08-03] MEDS: OMEPRAZOLE 20MG CAPSULE EXTENDED RELEASE PO SCH (08:57)
[2018-08-03] MEDS: DORZOLAMIDE 2% OPHTH 10 ML BOTTLE BOTHEYE SCH ×3 (08:58→18:32)
[2018-08-03] MEDS: LATANOPROST 0.005% OPHTH DROPS 2.5ML BOTHEYE SCH ×2 (08:58→18:32)
[2018-08-03] MEDS: BRIMONIDINE 0.2% OPHTH DROPS 5ML BOTHEYE SCH ×3 (08:59→18:32)
[2018-08-03] MEDS: ENOXAPARIN 30MG/0.3ML SYR SUBCUT SCH (09:00)
[2018-08-03] MEDS: BUDESONIDE 0.5MG/2ML NEB HHN SCH ×2 (09:13→22:20)
[2018-08-03] MEDS: GUAIFENESIN 200MG/10ML SUGAR FREE UDC PO PRN ×2 (13:15→20:06)
[2018-08-03] MEDS: ATORVASTATIN CALCIUM 20MG TABLET PO SCH (20:06)
[2018-08-03] MEDS ORDERED: EPOETIN ALFA 4000UNITS/ML VIAL SUBCUT SCH (21:00)
[2018-08-04] MEDS: ALBUTEROL (0.083%) 2.5MG/3ML NEB HHN SCH (02:47)
[2018-08-04 04:00] VITALS: BP 151/46
[2018-08-04] MEDS: SODIUM CHLORIDE 0.9% INJ 3ML FLUSH IVF SCH ×2 (06:00→14:00)
[2018-08-04] MEDS: BLOOD SUGAR DIAGNOSTIC STRIP TEST SCH ×2 (07:40→12:40)
[2018-08-04] MEDS: INSULIN LISPRO 100 UNITS/ML SUBCUT SCH ×2 (07:51→13:10)
[2018-08-04 08:00] VITALS: BP 158/53
[2018-08-04] MEDS: SEVELAMER CARBONATE 800 MG TABLET PO SCH ×2 (08:55→13:10)
[2018-08-04] MEDS: FOLIC ACID/VITAMIN B COMP W-C TABLET PO SCH (08:55)
[2018-08-04] MEDS: AMIODARONE HCL 200 MG TABLET PO SCH (08:55)
[2018-08-04] MEDS: ASPIRIN 81MG EC TABLET PO SCH (08:55)
[2018-08-04] MEDS: AMLODIPINE 2.5MG TABLET PO SCH (08:56)
[2018-08-04] MEDS: ENOXAPARIN 30MG/0.3ML SYR SUBCUT SCH (08:57)
[2018-08-04] MEDS: GUAIFENESIN 200MG/10ML SUGAR FREE UDC PO PRN (08:57)
[2018-08-04 09:00] VITALS: BP_SYST 151; BP_SYST 155; BP_SYST 158; BP_DIAS 50; BP_DIAS 51; BP_DIAS 55
[2018-08-04] MEDS ORDERED: FAMOTIDINE 20MG TABLET PO SCH (09:00)
[2018-08-04] MEDS: BRIMONIDINE 0.2% OPHTH DROPS 5ML BOTHEYE SCH ×2 (13:00→13:01)
[2018-08-04] MEDS: DORZOLAMIDE 2% OPHTH 10 ML BOTTLE BOTHEYE SCH ×2 (13:00→13:01)
[2018-08-04] MEDS: LATANOPROST 0.005% OPHTH DROPS 2.5ML BOTHEYE SCH (13:02)
== END 2018-08-04 14:45 | disposition home or self-care (01) | DRG 73 ==
LOC: ER 15:57 → EDBEDREQTM 18:35 → EDBEDREQ 18:35 → ENRESERV 23:37 → 7WST 08-02 00:09
PROVIDERS: ADMIT Internal Medicine; ATTEND Internal Medicine
PROC: 5A1D70Z Performance of Urinary Filtration, Intermittent, Less than 6 Hours Per Day (ICD-10-PCS; principal; 2018-08-02)
DX: G90.8 Other disorders of autonomic nervous system (principal); N18.6 End stage renal disease; I13.11 Hypertensive heart and chronic kidney disease without heart failure, with stage 5 chronic kidney disease, or end stage renal disease; D63.1 Anemia in chronic kidney disease; E87.6 Hypokalemia; E78.5 Hyperlipidemia, unspecified; G40.909 Epilepsy, unspecified, not intractable, without status epilepticus; H40.9 Unspecified glaucoma; I27.20 Pulmonary hypertension, unspecified; H54.62 Unqualified visual loss, left eye, normal vision right eye; I48.0 Paroxysmal atrial fibrillation; J44.9 Chronic obstructive pulmonary disease, unspecified; E11.21 Type 2 diabetes mellitus with diabetic nephropathy; D25.9 Leiomyoma of uterus, unspecified; E11.22 Type 2 diabetes mellitus with diabetic chronic kidney disease; E11.319 Type 2 diabetes mellitus with unspecified diabetic retinopathy without macular edema; Z79.4 Long term (current) use of insulin; Z79.82 Long term (current) use of aspirin; Z86.718 Personal history of other venous thrombosis and embolism; Z87.01 Personal history of pneumonia (recurrent); Z90.49 Acquired absence of other specified parts of digestive tract; Z99.2 Dependence on renal dialysis; Z79.899 Other long term (current) drug therapy; Z91.013 Allergy to seafood
CPT/HCPCS: 36415; 71045; 80048; 80061; 82550; 82553; 82962; 83735; 83880; 84100; 84439; 84443; 84484; 93005; 93306; 93880; 94640; 99285; J0885; J1650; J1815; J7611; J7626

== ENCOUNTER 2018-08-27 14:58 | Inpatient (IN) | payer MEDICARE ==
[~2018-08-27] VITALS: Ht 154.9 cm; Wt 56.7 kg
[~2018-08-27 14:58] MED LIST changes: -OMEP20CA4; -PRED10DR OP
[2018-08-27] MEDS ORDERED: ONDANSETRON HCL 4MG/2ML INJ IV ONE (21:15)
[2018-08-27 21:35] LABS: BASOPHILS % 1.4 % (0.0-2.0); EOSINOPHILS % 1.2 % (0.0-5.0); HEMATOCRIT. 31.4 % (36.0-48.0); HEMOGLOBIN. 10.5 g/dL (12.0-16.0); LYMPHOCYTES % 11.1 % (20.0-50.0); MEAN CORPUSCULAR HEMOGLOBIN 34.1 pg (28.0-32.0); MEAN CORPUSCULAR VOLUME 101.6 fL (81.0-99.0); MEAN PLATELET VOLUME 8.4 fl (7.4-10.4); MONOCYTES % 10.4 % (2.0-8.0); NEUTROPHILS % 75.9 % (40.0-76.0); PLATELET 157 x1000/uL (130-400); RED BLOOD CELL COUNT 3.09 mill/uL (4.2-5.4); RED CELL DISTRIBUTION WIDTH 16.2 % (11.6-14.6)
[2018-08-27 21:38] LABS: CHLORIDE 99 mEq/L (98-107)
[2018-08-27 21:39] LABS: INR 1.1; PARTIAL THROMBOPLASTIN TIME 26.4 sec (23.4-31.0); PROTHROMBIN TIME 10.9 sec (9.1-11.1)
[2018-08-27 21:46] LABS: CREATINE KINASE 257 IU/L (26-192)
[2018-08-27 21:49] LABS: CREATINE KINASE MB FRACTION 2.1 ng/mL (0.5-3.6)
[2018-08-27] MEDS ORDERED: VANCOMYCIN 1 G PREMIX 200 ML IV SCH (23:00)
[2018-08-27] MEDS: CEFTRIAXONE 1 G PREMIX 50 ML IV NR ×2 (23:24→23:34)
[2018-08-28] MEDS: VANCOMYCIN 500 MG PREMIX 100 ML IV SCH ×2 (01:25→01:53)
[2018-08-28 09:00] VITALS: BP 154/46
[2018-08-28 10:00] VITALS: BP 154/46
[2018-08-28] MEDS ORDERED: SITA100T11 MT (12:29)
[2018-08-28] MEDS ORDERED: AMIO400T2 PO (12:32)
[2018-08-28] MEDS ORDERED: SEVE800T8 MT (12:33)
[2018-08-28] MEDS ORDERED: PRED5DRO LEFTEYE (12:37)
[2018-08-28] MEDS ORDERED: DOCUSATE SODIUM 100MG CAPSULE PO PRN (13:45)
[2018-08-28] MEDS ORDERED: ONDANSETRON HCL 4MG/2ML INJ IV PRN (13:45)
[2018-08-28] MEDS ORDERED: DIPHENHYDRAMINE 50MG/ML VIAL IV PRN (13:45)
[2018-08-28] MEDS ORDERED: MAGNESIUM/ALUMINUM HYDROXIDE/SIMETHICONE 30ML UDC PO PRN (13:45)
[2018-08-28] MEDS ORDERED: ACETAMINOPHEN 325MG TABLET PO PRN (13:45)
[2018-08-28] MEDS ORDERED: DEXTROSE 50% WATER 50ML SYRINGE IV PRN ×2 (13:45)
[2018-08-28] MEDS: BLOOD SUGAR DIAGNOSTIC STRIP TEST SCH ×2 (17:02→20:40)
[2018-08-28] MEDS: INSULIN LISPRO 100 UNITS/ML SUBCUT SCH ×2 (17:03→20:40)
[2018-08-28] MEDS: CALCIUM ACETATE 667MG CAPSULE PO SCH ×2 (17:04→20:35)
[2018-08-28] MEDS: PREDNISOLONE ACETATE 1% OPHTH DROPS 1ML LEFTEYE SCH (17:05)
[2018-08-28 20:00] VITALS: BP_SYST 144; BP_SYST 154; BP_SYST 156; BP_DIAS 48; BP_DIAS 50; BP_DIAS 52
[2018-08-28] MEDS: MONTELUKAST SODIUM 10MG TABLET PO SCH (20:35)
[2018-08-28] MEDS: LATANOPROST 0.005% OPHTH DROPS 2.5ML RIGHTEYE SCH (20:35)
[2018-08-29] VITALS: BP 154/50
[2018-08-29] MEDS: GUAIFENESIN 200MG/10ML SUGAR FREE UDC PO PRN ×2 (01:09→08:38)
[2018-08-29 04:00] VITALS: BP 154/56
[2018-08-29] MEDS: BLOOD SUGAR DIAGNOSTIC STRIP TEST SCH ×4 (06:09→20:31)
[2018-08-29] MEDS: INSULIN LISPRO 100 UNITS/ML SUBCUT SCH ×4 (06:09→20:35)
[2018-08-29 06:59] LABS: BASOPHILS % 1.2 % (0.0-2.0); HEMATOCRIT. 28.1 % (36.0-48.0); HEMOGLOBIN. 9.5 g/dL (12.0-16.0); LYMPHOCYTES % 10.9 % (20.0-50.0); MEAN CORPUSCULAR HEMOGLOBIN 34.6 pg (28.0-32.0); MEAN CORPUSCULAR VOLUME 102.5 fL (81.0-99.0); MEAN PLATELET VOLUME 8.9 fl (7.4-10.4); MONOCYTES % 9.2 % (2.0-8.0); NEUTROPHILS % 76.7 % (40.0-76.0); PLATELET 136 x1000/uL (130-400); RED BLOOD CELL COUNT 2.74 mill/uL (4.2-5.4); RED CELL DISTRIBUTION WIDTH 16.4 % (11.6-14.6)
[2018-08-29 07:24] LABS: CHLORIDE 98 mEq/L (98-107)
[2018-08-29 07:32] LABS: PHOSPHORUS 3.2 mg/dL (2.5-4.9)
[2018-08-29 07:34] LABS: CREATINE KINASE 140 IU/L (26-192)
[2018-08-29 08:00] VITALS: BP 171/69
[2018-08-29] MEDS: CALCIUM ACETATE 667MG CAPSULE PO SCH ×4 (08:38→20:21)
[2018-08-29] MEDS: PREDNISOLONE ACETATE 1% OPHTH DROPS 1ML LEFTEYE SCH (08:38)
[2018-08-29] MEDS ORDERED: GUAIFENESIN/CODEINE 100-10MG/5ML UDC PO PRN (14:15)
[2018-08-29 16:00] VITALS: BP 168/60
[2018-08-29] MEDS: LISINOPRIL 10MG TABLET PO SCH (17:48)
[2018-08-29 20:00] VITALS: BP 175/45
[2018-08-29] MEDS: MONTELUKAST SODIUM 10MG TABLET PO SCH (20:21)
[2018-08-29] MEDS: MINOXIDIL 2.5MG TABLET PO SCH (20:22)
[2018-08-29] MEDS: LATANOPROST 0.005% OPHTH DROPS 2.5ML RIGHTEYE SCH (20:27)
[2018-08-29 20:41] VITALS: BP_SYST 168; BP_SYST 172; BP_DIAS 53; BP_DIAS 58
[2018-08-29] MEDS ORDERED: EPOETIN ALFA 4000UNITS/ML VIAL SUBCUT SCH (21:00)
[2018-08-29] MEDS ORDERED: OSELTAMIVIR 30MG CAPSULE PO SCH (21:00)
[2018-08-30] VITALS: BP 114/56
[2018-08-30 04:00] VITALS: BP 122/50
[2018-08-30 06:54] LABS: BASOPHILS % 1.3 % (0.0-2.0); EOSINOPHILS % 1.9 % (0.0-5.0); HEMATOCRIT. 29.7 % (36.0-48.0); HEMOGLOBIN. 9.6 g/dL (12.0-16.0); LYMPHOCYTES % 10.5 % (20.0-50.0); MEAN CORPUSCULAR HEMOGLOBIN 34.7 pg (28.0-32.0); MEAN PLATELET VOLUME 9.3 fl (7.4-10.4); MONOCYTES % 9.8 % (2.0-8.0); NEUTROPHILS % 76.5 % (40.0-76.0); PLATELET 109 x1000/uL (130-400); RED BLOOD CELL COUNT 2.78 mill/uL (4.2-5.4); RED CELL DISTRIBUTION WIDTH 16.8 % (11.6-14.6)
[2018-08-30] MEDS: INSULIN LISPRO 100 UNITS/ML SUBCUT SCH ×2 (06:59→12:13)
[2018-08-30] MEDS: BLOOD SUGAR DIAGNOSTIC STRIP TEST SCH ×2 (06:59→12:10)
[2018-08-30] MEDS: CALCIUM ACETATE 667MG CAPSULE PO SCH ×2 (07:40→12:13)
[2018-08-30 07:44] LABS: PHOSPHORUS 2.3 mg/dL (2.5-4.9)
[2018-08-30 08:00] VITALS: BP 129/68
[2018-08-30] MEDS: LISINOPRIL 10MG TABLET PO SCH (08:51)
[2018-08-30] MEDS: MINOXIDIL 2.5MG TABLET PO SCH (08:51)
[2018-08-30] MEDS: PREDNISOLONE ACETATE 1% OPHTH DROPS 1ML LEFTEYE SCH (08:51)
[2018-08-30 12:00] VITALS: BP 136/50
[2018-08-30 13:13] VITALS: BP 136/50
== END 2018-08-30 14:25 | disposition home or self-care (01) | DRG 73 ==
LOC: ER 14:58 → 8WST 22:02 → EDBEDREQTM 22:04 → EDBEDREQ 22:04 → ENRESERV 08-28 07:21
PROVIDERS: ADMIT Family Medicine Adult Medicine; ATTEND Family Medicine Adult Medicine
PROC: 5A1D70Z Performance of Urinary Filtration, Intermittent, Less than 6 Hours Per Day (ICD-10-PCS; principal; 2018-08-28)
DX: G90.8 Other disorders of autonomic nervous system (principal); N18.6 End stage renal disease; I12.0 Hypertensive chronic kidney disease with stage 5 chronic kidney disease or end stage renal disease; J10.1 Influenza due to other identified influenza virus with other respiratory manifestations; R55 Syncope and collapse; D63.1 Anemia in chronic kidney disease; E78.5 Hyperlipidemia, unspecified; E11.22 Type 2 diabetes mellitus with diabetic chronic kidney disease; E11.319 Type 2 diabetes mellitus with unspecified diabetic retinopathy without macular edema; E78.00 Pure hypercholesterolemia, unspecified; E87.6 Hypokalemia; H40.9 Unspecified glaucoma; R26.9 Unspecified abnormalities of gait and mobility; H54.62 Unqualified visual loss, left eye, normal vision right eye; I48.91 Unspecified atrial fibrillation; J44.9 Chronic obstructive pulmonary disease, unspecified; Z79.4 Long term (current) use of insulin; Z86.718 Personal history of other venous thrombosis and embolism; Z87.01 Personal history of pneumonia (recurrent); Z99.2 Dependence on renal dialysis; Z90.89 Acquired absence of other organs; Z79.899 Other long term (current) drug therapy; Z79.82 Long term (current) use of aspirin
CPT/HCPCS: 36415; 70544; 70553; 71045; 74176; 80048; 80076; 82550; 82553; 82962; 83036; 83605; 83735; 83880; 84100; 84484; 87804; 93005; 93970; 96365; 96366; 96368; 96375; 97162; 97165; 99285; J0696; J0885; J1815; J2405; J3370

== ENCOUNTER 2018-10-07 19:03 | Inpatient (IN) | payer MEDICARE ==
[~2018-10-07] VITALS: Ht 154.9 cm; Wt 51.3 kg
[~2018-10-07 19:03] MED LIST changes: +AMIO400T2 PO; +PRED5DRO LEFTEYE; +SEVE800T8 MT; +SITA100T11 MT
[2018-10-07 20:00] VITALS: BP 140/45
[2018-10-07] MEDS ORDERED: DEXTROSE 50% WATER 50ML SYRINGE IV PRN (20:15)
[2018-10-07] MEDS ORDERED: CLONIDINE 0.1MG TABLET PO PRN (20:15)
[2018-10-07] MEDS ORDERED: ONDANSETRON HCL 4MG TABLET PO PRN (20:15)
[2018-10-07] MEDS ORDERED: DIPHENHYDRAMINE 25MG CAPSULE PO PRN (20:15)
[2018-10-07] MEDS ORDERED: ZOLPIDEM TARTRATE 5MG TABLET PO PRN ×2 (20:15→21:30)
[2018-10-07] MEDS ORDERED: IPRATROPIUM/ALBUTEROL 0.5-3(2.5)MG/3ML NEB HHN PRN (20:15)
[2018-10-07] MEDS ORDERED: MAGNESIUM/ALUMINUM HYDROXIDE/SIMETHICONE 30ML UDC PO PRN (20:15)
[2018-10-07] MEDS ORDERED: ACETAMINOPHEN 325MG TABLET PO PRN (20:15)
[2018-10-07 21:00] VITALS: BP 140/45
[2018-10-07] MEDS: MINOXIDIL 2.5MG TABLET PO SCH (21:48)
[2018-10-07] MEDS: ATORVASTATIN CALCIUM 20MG TABLET PO SCH (21:48)
[2018-10-07] MEDS: APIXABAN 2.5 MG TABLET PO SCH (21:48)
[2018-10-07] MEDS: DILTIAZEM HCL 90MG TABLET PO SCH (21:48)
[2018-10-07] MEDS: HYDRALAZINE HCL 50MG TABLET PO SCH (21:48)
[2018-10-07] MEDS: BLOOD SUGAR DIAGNOSTIC STRIP TEST SCH (21:49)
[2018-10-07] MEDS: GUAIFENESIN/CODEINE 200-20MG/10ML UDC PO PRN (22:19)
[2018-10-07] MEDS: INSULIN LISPRO 100 UNITS/ML SUBCUT SCH (22:56)
[2018-10-08] MEDS: ALBUTEROL (0.083%) 2.5MG/3ML NEB HHN PRN ×2 (01:29→07:28)
[2018-10-08] MEDS: BUDESONIDE 0.5MG/2ML NEB HHN SCH ×3 (01:29→21:15)
[2018-10-08] MEDS: DILTIAZEM HCL 90MG TABLET PO SCH ×2 (06:04→13:35)
[2018-10-08] MEDS: HYDRALAZINE HCL 50MG TABLET PO SCH ×2 (06:04→13:35)
[2018-10-08] MEDS: BLOOD SUGAR DIAGNOSTIC STRIP TEST SCH ×4 (06:04→21:00)
[2018-10-08] MEDS: GUAIFENESIN/CODEINE 200-20MG/10ML UDC PO PRN (06:04)
[2018-10-08 07:00] LABS: CHLORIDE 99 mEq/L (98-107)
[2018-10-08 07:13] LABS: HEMATOCRIT. 32.7 % (36.0-48.0); HEMOGLOBIN. 11.1 g/dL (12.0-16.0); MEAN CORPUSCULAR HEMOGLOBIN 34.2 pg (28.0-32.0); MEAN CORPUSCULAR VOLUME 100.3 fL (81.0-99.0); MEAN PLATELET VOLUME 9.3 fl (7.4-10.4); PLATELET 151 x1000/uL (130-400); RED BLOOD CELL COUNT 3.26 mill/uL (4.2-5.4)
[2018-10-08 07:14] LABS: PHOSPHORUS 1.5 mg/dL (2.5-4.9)
[2018-10-08] MEDS: INSULIN LISPRO 100 UNITS/ML SUBCUT SCH ×4 (07:21→21:00)
[2018-10-08 07:47] VITALS: BP 139/88
[2018-10-08] MEDS: AMIODARONE HCL 200 MG TABLET PO SCH (08:42)
[2018-10-08] MEDS: PREDNISONE 20MG TABLET PO SCH (08:42)
[2018-10-08] MEDS: CALCIUM ACETATE 667MG CAPSULE PO SCH ×3 (08:42→18:35)
[2018-10-08] MEDS: SEVELAMER CARBONATE 800 MG TABLET PO SCH ×3 (08:42→18:35)
[2018-10-08] MEDS: MINOXIDIL 2.5MG TABLET PO SCH (08:42)
[2018-10-08] MEDS: APIXABAN 2.5 MG TABLET PO SCH ×2 (08:42→09:00)
[2018-10-08] MEDS: LINAGLIPTIN 5MG TABLET PO SCH (08:42)
[2018-10-08] MEDS: PREDNISOLONE ACETATE 1% OPHTH DROPS 1ML LEFTEYE SCH (08:43)
[2018-10-08] MEDS: SIMBRINZA OP SCH ×3 (08:43→18:44)
[2018-10-08] MEDS: FLUTICASONE/VILANTEROL 200-25 BLST.W.DEV ORI SCH (08:47)
[2018-10-08] MEDS: BENZONATATE 100MG CAPSULE PO PRN (12:15)
[2018-10-08 15:48] LABS: PLATELET ESTIMATE NORMAL
[2018-10-08] MEDS: AMOXICILLIN 500 MG CAPSULE PO SCH (18:35)
[2018-10-08] MEDS: BISACODYL 5MG TABLET PO PRN (18:35)
[2018-10-08] MEDS: LATANOPROST 0.005% OPHTH DROPS 2.5ML RIGHTEYE SCH (18:36)
[2018-10-08 20:00] VITALS: BP 116/42
[2018-10-09] MEDS: DILTIAZEM HCL 90MG TABLET PO SCH ×4 (00:02→20:49)
[2018-10-09] MEDS: APIXABAN 2.5 MG TABLET PO SCH ×3 (00:03→20:45)
[2018-10-09] MEDS: HYDRALAZINE HCL 50MG TABLET PO SCH ×4 (00:05→20:49)
[2018-10-09] MEDS: MINOXIDIL 2.5MG TABLET PO SCH ×3 (00:06→20:49)
[2018-10-09] MEDS: GUAIFENESIN/CODEINE 200-20MG/10ML UDC PO PRN ×3 (00:27→21:02)
[2018-10-09] MEDS: BLOOD SUGAR DIAGNOSTIC STRIP TEST SCH ×4 (06:21→20:49)
[2018-10-09] MEDS: INSULIN LISPRO 100 UNITS/ML SUBCUT SCH ×4 (06:21→20:56)
[2018-10-09 08:16] VITALS: BP 135/81
[2018-10-09] MEDS: SEVELAMER CARBONATE 800 MG TABLET PO SCH ×2 (09:00→11:33)
[2018-10-09] MEDS: FLUTICASONE/VILANTEROL 200-25 BLST.W.DEV ORI SCH (09:00)
[2018-10-09] MEDS ORDERED: LEVOFLOXACIN 250MG TABLET PO SCH (09:00)
[2018-10-09] MEDS: PREDNISONE 20MG TABLET PO SCH (09:09)
[2018-10-09] MEDS: LINAGLIPTIN 5MG TABLET PO SCH (09:09)
[2018-10-09] MEDS: BISACODYL 5MG TABLET PO PRN (09:09)
[2018-10-09] MEDS: AMIODARONE HCL 200 MG TABLET PO SCH (09:09)
[2018-10-09] MEDS: SIMBRINZA OP SCH ×3 (09:12→17:11)
[2018-10-09] MEDS: PREDNISOLONE ACETATE 1% OPHTH DROPS 1ML LEFTEYE SCH (09:12)
[2018-10-09] MEDS: BUDESONIDE 0.5MG/2ML NEB HHN SCH ×2 (12:01→20:44)
[2018-10-09] MEDS: ALBUTEROL (0.083%) 2.5MG/3ML NEB HHN PRN (12:04)
[2018-10-09] MEDS: AMOXICILLIN 500 MG CAPSULE PO SCH (16:00)
[2018-10-09] MEDS ORDERED: ALBU18HF2 IH (16:09)
[2018-10-09 17:37] LABS: HEMATOCRIT 29.8 % (36.0-48.0); MEAN CORPUSCULAR HEMOGLOBIN 33.8 pg (28.0-32.0); MEAN CORPUSCULAR VOLUME 100.5 fL (81.0-99.0); PLATELET 156 x1000/uL (130-400); RED BLOOD CELL COUNT 2.96 mill/uL (4.2-5.4); RED CELL DISTRIBUTION WIDTH 15.4 % (11.6-14.6)
[2018-10-09 20:00] VITALS: BP 79/36
[2018-10-09] MEDS: ATORVASTATIN CALCIUM 20MG TABLET PO SCH ×2 (20:45)
[2018-10-09 21:16] VITALS: BP 104/47
[2018-10-10] MEDS ORDERED: NA PHOS,M-B/NA PHOS,DI-BA ENEMA 118ML PR SCH (00:45)
[2018-10-10] MEDS: DILTIAZEM HCL 90MG TABLET PO SCH ×3 (06:00→22:13)
[2018-10-10] MEDS: HYDRALAZINE HCL 50MG TABLET PO SCH ×3 (06:00→23:00)
[2018-10-10] MEDS: BLOOD SUGAR DIAGNOSTIC STRIP TEST SCH ×4 (06:10→20:32)
[2018-10-10] MEDS: INSULIN LISPRO 100 UNITS/ML SUBCUT SCH ×4 (06:10→20:32)
[2018-10-10 06:19] LABS: HEMATOCRIT. 31.3 % (36.0-48.0); HEMOGLOBIN. 10.3 g/dL (12.0-16.0); MEAN CORPUSCULAR HEMOGLOBIN 33.4 pg (28.0-32.0); MEAN CORPUSCULAR VOLUME 101.1 fL (81.0-99.0); MEAN PLATELET VOLUME 9.7 fl (7.4-10.4); PLATELET 168 x1000/uL (130-400); RED CELL DISTRIBUTION WIDTH 15.4 % (11.6-14.6)
[2018-10-10 06:26] LABS: CHLORIDE 104 mEq/L (98-107)
[2018-10-10 06:38] LABS: FOLIC ACID (FOLATE) SERUM 18.1 ng/mL (>5.38)
[2018-10-10 06:44] LABS: PHOSPHORUS 2.4 mg/dL (2.5-4.9)
[2018-10-10 06:45] LABS: TOTAL IRON BINDING CAPACITY 206 ug/dL (250-450)
[2018-10-10] MEDS: ALBUTEROL (0.083%) 2.5MG/3ML NEB HHN PRN ×2 (07:13→20:14)
[2018-10-10] MEDS: BUDESONIDE 0.5MG/2ML NEB HHN SCH ×2 (07:13→20:14)
[2018-10-10 08:00] VITALS: BP 122/75
[2018-10-10] MEDS: PREDNISONE 20MG TABLET PO SCH (08:51)
[2018-10-10] MEDS: LINAGLIPTIN 5MG TABLET PO SCH (08:51)
[2018-10-10] MEDS: AMIODARONE HCL 200 MG TABLET PO SCH (08:52)
[2018-10-10] MEDS: SEVELAMER CARBONATE 800 MG TABLET PO SCH ×3 (08:52→16:43)
[2018-10-10] MEDS: APIXABAN 2.5 MG TABLET PO SCH ×2 (08:52→20:32)
[2018-10-10] MEDS: MINOXIDIL 2.5MG TABLET PO SCH ×2 (09:00→20:32)
[2018-10-10] MEDS: SIMBRINZA OP SCH ×3 (09:14→16:47)
[2018-10-10] MEDS: PREDNISOLONE ACETATE 1% OPHTH DROPS 1ML LEFTEYE SCH (09:14)
[2018-10-10] MEDS: GUAIFENESIN/CODEINE 200-20MG/10ML UDC PO PRN ×2 (09:14→22:10)
[2018-10-10] MEDS: FLUTICASONE/VILANTEROL 200-25 BLST.W.DEV ORI SCH (09:22)
[2018-10-10 09:35] LABS: PLATELET ESTIMATE NORMAL
[2018-10-10] MEDS: CALCIUM ACETATE 667MG CAPSULE PO SCH ×2 (13:06→16:43)
[2018-10-10] MEDS: AMOXICILLIN 500 MG CAPSULE PO SCH (16:44)
[2018-10-10] MEDS: LATANOPROST 0.005% OPHTH DROPS 2.5ML RIGHTEYE SCH ×2 (16:46→17:00)
[2018-10-10 20:00] VITALS: BP 132/55
[2018-10-10] MEDS: ATORVASTATIN CALCIUM 20MG TABLET PO SCH (20:31)
[2018-10-11] MEDS: DILTIAZEM HCL 90MG TABLET PO SCH ×3 (06:00→22:49)
[2018-10-11] MEDS: HYDRALAZINE HCL 50MG TABLET PO SCH ×3 (06:31→22:00)
[2018-10-11] MEDS: INSULIN LISPRO 100 UNITS/ML SUBCUT SCH ×4 (06:32→21:17)
[2018-10-11] MEDS: BLOOD SUGAR DIAGNOSTIC STRIP TEST SCH ×4 (06:32→21:05)
[2018-10-11 06:35] LABS: HEMATOCRIT. 31.7 % (36.0-48.0); HEMOGLOBIN. 10.7 g/dL (12.0-16.0); MEAN CORPUSCULAR HEMOGLOBIN 33.9 pg (28.0-32.0); MEAN CORPUSCULAR VOLUME 100.8 fL (81.0-99.0); MEAN PLATELET VOLUME 9.2 fl (7.4-10.4); PLATELET 190 x1000/uL (130-400); RED BLOOD CELL COUNT 3.15 mill/uL (4.2-5.4); RED CELL DISTRIBUTION WIDTH 15.8 % (11.6-14.6)
[2018-10-11 07:09] LABS: PHOSPHORUS 2.8 mg/dL (2.5-4.9)
[2018-10-11] MEDS: ALBUTEROL (0.083%) 2.5MG/3ML NEB HHN PRN ×3 (07:30→21:29)
[2018-10-11 08:00] VITALS: BP 117/40
[2018-10-11 08:36] LABS: PLATELET ESTIMATE NORMAL
[2018-10-11] MEDS: MINOXIDIL 2.5MG TABLET PO SCH ×2 (08:58→21:05)
[2018-10-11] MEDS: PREDNISONE 20MG TABLET PO SCH (08:58)
[2018-10-11] MEDS: SEVELAMER CARBONATE 800 MG TABLET PO SCH ×3 (08:58→17:00)
[2018-10-11] MEDS: LINAGLIPTIN 5MG TABLET PO SCH (08:58)
[2018-10-11] MEDS: APIXABAN 2.5 MG TABLET PO SCH ×2 (08:58→21:05)
[2018-10-11] MEDS: CALCIUM ACETATE 667MG CAPSULE PO SCH ×3 (08:58→17:00)
[2018-10-11] MEDS: AMIODARONE HCL 200 MG TABLET PO SCH (08:58)
[2018-10-11] MEDS: PREDNISOLONE ACETATE 1% OPHTH DROPS 1ML LEFTEYE SCH (09:00)
[2018-10-11] MEDS: SIMBRINZA OP SCH ×3 (09:00→17:00)
[2018-10-11] MEDS: FLUTICASONE/VILANTEROL 200-25 BLST.W.DEV ORI SCH (14:59)
[2018-10-11] MEDS: AMOXICILLIN 500 MG CAPSULE PO SCH (16:00)
[2018-10-11] MEDS: LATANOPROST 0.005% OPHTH DROPS 2.5ML RIGHTEYE SCH (17:06)
[2018-10-11 20:00] VITALS: BP 135/63
[2018-10-11] MEDS: ATORVASTATIN CALCIUM 20MG TABLET PO SCH (21:05)
[2018-10-11] MEDS: GUAIFENESIN/CODEINE 200-20MG/10ML UDC PO PRN (21:17)
[2018-10-12] MEDS: ALBUTEROL (0.083%) 2.5MG/3ML NEB HHN PRN ×5 (01:14→20:10)
[2018-10-12] MEDS: HYDRALAZINE HCL 50MG TABLET PO SCH ×3 (06:00→21:43)
[2018-10-12] MEDS: DILTIAZEM HCL 90MG TABLET PO SCH ×2 (06:48→17:40)
[2018-10-12] MEDS: BLOOD SUGAR DIAGNOSTIC STRIP TEST SCH ×4 (06:48→21:44)
[2018-10-12] MEDS: INSULIN LISPRO 100 UNITS/ML SUBCUT SCH ×4 (06:49→21:40)
[2018-10-12 08:00] VITALS: BP 127/63
[2018-10-12] MEDS: FLUTICASONE/VILANTEROL 200-25 BLST.W.DEV ORI SCH (09:10)
[2018-10-12] MEDS: APIXABAN 2.5 MG TABLET PO SCH ×2 (09:24→21:43)
[2018-10-12] MEDS: PREDNISONE 20MG TABLET PO SCH (09:24)
[2018-10-12] MEDS: AMIODARONE HCL 200 MG TABLET PO SCH ×2 (09:24→21:44)
[2018-10-12] MEDS: SEVELAMER CARBONATE 800 MG TABLET PO SCH ×3 (09:24→17:40)
[2018-10-12] MEDS: LINAGLIPTIN 5MG TABLET PO SCH (09:24)
[2018-10-12] MEDS: MINOXIDIL 2.5MG TABLET PO SCH (09:25)
[2018-10-12] MEDS: CALCIUM ACETATE 667MG CAPSULE PO SCH ×3 (09:25→17:41)
[2018-10-12] MEDS: PREDNISOLONE ACETATE 1% OPHTH DROPS 1ML LEFTEYE SCH (09:26)
[2018-10-12] MEDS: SIMBRINZA OP SCH ×3 (09:29→17:42)
[2018-10-12 10:34] LABS: BG BASE EXCESS 2.9 mmol/L (-2.0-2.0); BG CARBOXYHEMOGLOBIN 0.3 % (0.5-1.5); BG DEOXYHEMOGLOBIN 2.9 % (0.0-5.0); BG FRACTION INSPIRED OXYGEN 60; BG HCO3 ACT 26.1 mmol/L (22.0-26.0); BG METHEMOGLOBIN 0.3 % (0.0-1.5); BG OXYGEN SATURATION 97.1 % (92.0-98.5); BG OXYHEMOGLOBIN 96.5 % (94.0-97.0); BG PCO2 34.9 mmHg (35.0-45.0); BG PH 7.491 (7.350-7.450); BG PO2 92.7 mmHg (75.0-100.0); BG SAMPLE SITE LEFT RADIAL; BG TOTAL HEMOGLOBIN 11.9 g/dL (12.0-18.0)
[2018-10-12] MEDS ORDERED: PREDNISONE 20MG TABLET PO SCH (11:00)
[2018-10-12] MEDS ORDERED: PREDNISONE 20MG TABLET PO NR (11:30)
[2018-10-12] MEDS: BENZONATATE 100MG CAPSULE PO PRN (14:49)
[2018-10-12] MEDS: AMOXICILLIN 500 MG CAPSULE PO SCH (17:40)
[2018-10-12] MEDS: LATANOPROST 0.005% OPHTH DROPS 2.5ML RIGHTEYE SCH (17:41)
[2018-10-12] MEDS: BISACODYL 5MG TABLET PO PRN (18:30)
[2018-10-12 20:00] VITALS: BP 129/48
[2018-10-12] MEDS: BUDESONIDE 0.5MG/2ML NEB HHN SCH (20:10)
[2018-10-12] MEDS: ATORVASTATIN CALCIUM 20MG TABLET PO SCH (21:43)
[2018-10-12] MEDS ORDERED: ZOLPIDEM TARTRATE 5MG TABLET PO PRN (21:45)
[2018-10-13] MEDS: DILTIAZEM HCL 90MG TABLET PO SCH ×4 (00:01→17:39)
[2018-10-13] MEDS ORDERED: NA PHOS,M-B/NA PHOS,DI-BA ENEMA 118ML PR SCH (03:00)
[2018-10-13] MEDS: HYDRALAZINE HCL 50MG TABLET PO SCH ×3 (05:42→21:04)
[2018-10-13] MEDS: INSULIN LISPRO 100 UNITS/ML SUBCUT SCH ×4 (05:45→22:35)
[2018-10-13] MEDS: BLOOD SUGAR DIAGNOSTIC STRIP TEST SCH ×4 (05:46→22:25)
[2018-10-13 07:42] LABS: HEMATOCRIT. 33.2 % (36.0-48.0); HEMOGLOBIN. 11.1 g/dL (12.0-16.0); MEAN CORPUSCULAR HEMOGLOBIN 33.3 pg (28.0-32.0); MEAN CORPUSCULAR VOLUME 99.9 fL (81.0-99.0); MEAN PLATELET VOLUME 9.7 fl (7.4-10.4); PLATELET 252 x1000/uL (130-400); RED BLOOD CELL COUNT 3.32 mill/uL (4.2-5.4); RED CELL DISTRIBUTION WIDTH 15.5 % (11.6-14.6)
[2018-10-13 07:57] LABS: CHLORIDE 96 mEq/L (98-107)
[2018-10-13 08:00] VITALS: BP 108/37
[2018-10-13 08:10] LABS: PHOSPHORUS 2.7 mg/dL (2.5-4.9)
[2018-10-13] MEDS: MINOXIDIL 2.5MG TABLET PO SCH (09:00)
[2018-10-13] MEDS: BUDESONIDE 0.5MG/2ML NEB HHN SCH ×2 (09:44→23:42)
[2018-10-13] MEDS: ALBUTEROL (0.083%) 2.5MG/3ML NEB HHN PRN ×2 (09:44→23:43)
[2018-10-13] MEDS: SEVELAMER CARBONATE 800 MG TABLET PO SCH ×3 (10:26→17:38)
[2018-10-13] MEDS: AMIODARONE HCL 200 MG TABLET PO SCH ×2 (10:26→21:04)
[2018-10-13] MEDS: PREDNISONE 20MG TABLET PO SCH (10:27)
[2018-10-13] MEDS: LINAGLIPTIN 5MG TABLET PO SCH (10:27)
[2018-10-13] MEDS: APIXABAN 2.5 MG TABLET PO SCH ×2 (10:27→21:05)
[2018-10-13] MEDS: BENZONATATE 100MG CAPSULE PO PRN (10:28)
[2018-10-13] MEDS: CALCIUM ACETATE 667MG CAPSULE PO SCH ×3 (10:28→17:39)
[2018-10-13] MEDS: FLUTICASONE/VILANTEROL 200-25 BLST.W.DEV ORI SCH (10:28)
[2018-10-13] MEDS: SIMBRINZA OP SCH ×3 (10:29→17:39)
[2018-10-13] MEDS: PREDNISOLONE ACETATE 1% OPHTH DROPS 1ML LEFTEYE SCH (10:30)
[2018-10-13] MEDS ORDERED: MAGNESIUM HYDROXIDE 400MG/5ML 30ML UDC PO PRN (13:15)
[2018-10-13 15:22] LABS: PLATELET ESTIMATE NORMAL
[2018-10-13] MEDS: AMOXICILLIN 500 MG CAPSULE PO SCH (15:36)
[2018-10-13] MEDS: LATANOPROST 0.005% OPHTH DROPS 2.5ML RIGHTEYE SCH (17:39)
[2018-10-13 20:00] VITALS: BP 140/59
[2018-10-13] MEDS: ATORVASTATIN CALCIUM 20MG TABLET PO SCH (21:04)
[2018-10-13] MEDS: GUAIFENESIN/CODEINE 200-20MG/10ML UDC PO PRN (21:46)
[2018-10-13] MEDS: ZOLPIDEM TARTRATE 5MG TABLET PO PRN (22:30)
[2018-10-14] MEDS: DILTIAZEM HCL 90MG TABLET PO SCH ×4 (00:41→17:32)
[2018-10-14] MEDS: ZOLPIDEM TARTRATE 5MG TABLET PO PRN ×2 (03:02→23:22)
[2018-10-14] MEDS: HYDRALAZINE HCL 50MG TABLET PO SCH ×2 (06:00→13:36)
[2018-10-14] MEDS: BLOOD SUGAR DIAGNOSTIC STRIP TEST SCH ×4 (06:48→21:00)
[2018-10-14] MEDS: BUDESONIDE 0.5MG/2ML NEB HHN SCH ×3 (07:14→20:53)
[2018-10-14 08:00] VITALS: BP 122/57
[2018-10-14] MEDS: INSULIN LISPRO 100 UNITS/ML SUBCUT SCH ×4 (08:04→23:17)
[2018-10-14] MEDS: APIXABAN 2.5 MG TABLET PO SCH ×2 (09:00→22:00)
[2018-10-14] MEDS: MINOXIDIL 2.5MG TABLET PO SCH (09:00)
[2018-10-14] MEDS: PREDNISOLONE ACETATE 1% OPHTH DROPS 1ML LEFTEYE SCH (09:44)
[2018-10-14] MEDS: CALCIUM ACETATE 667MG CAPSULE PO SCH ×3 (09:45→17:15)
[2018-10-14] MEDS: SEVELAMER CARBONATE 800 MG TABLET PO SCH ×3 (09:45→17:15)
[2018-10-14] MEDS: SIMBRINZA OP SCH ×3 (09:45→17:16)
[2018-10-14] MEDS: FLUTICASONE/VILANTEROL 200-25 BLST.W.DEV ORI SCH (09:45)
[2018-10-14] MEDS: LINAGLIPTIN 5MG TABLET PO SCH (09:45)
[2018-10-14] MEDS: PREDNISONE 20MG TABLET PO SCH (09:46)
[2018-10-14] MEDS: AMIODARONE HCL 200 MG TABLET PO SCH (09:46)
[2018-10-14] MEDS: POLYETHYLENE GLYCOL 3350 (17GM) 1 DOSE PACK PO SCH (09:46)
[2018-10-14] MEDS: ALBUTEROL (0.083%) 2.5MG/3ML NEB HHN PRN (12:16)
[2018-10-14] MEDS: LATANOPROST 0.005% OPHTH DROPS 2.5ML RIGHTEYE SCH (17:15)
[2018-10-14] MEDS: AMOXICILLIN 500 MG CAPSULE PO SCH (17:15)
[2018-10-14 20:00] VITALS: BP 121/64
[2018-10-14] MEDS: GUAIFENESIN/CODEINE 200-20MG/10ML UDC PO PRN (23:22)
[2018-10-14] MEDS: ATORVASTATIN CALCIUM 20MG TABLET PO SCH (23:23)
[2018-10-15] MEDS: HYDRALAZINE HCL 50MG TABLET PO SCH ×4 (01:00→21:49)
[2018-10-15] MEDS: AMIODARONE HCL 200 MG TABLET PO SCH ×3 (01:27→21:49)
[2018-10-15 04:10] LABS: 25-HYDROXY VITAMIN D3 31 ng/mL (.)
[2018-10-15 05:24] LABS: HEMATOCRIT. 34.3 % (36.0-48.0); HEMOGLOBIN. 11.4 g/dL (12.0-16.0); MEAN CORPUSCULAR HEMOGLOBIN 33.2 pg (28.0-32.0); MEAN CORPUSCULAR VOLUME 99.6 fL (81.0-99.0); MEAN PLATELET VOLUME 9.8 fl (7.4-10.4); PLATELET 296 x1000/uL (130-400); RED BLOOD CELL COUNT 3.44 mill/uL (4.2-5.4); RED CELL DISTRIBUTION WIDTH 15.5 % (11.6-14.6)
[2018-10-15] MEDS: DILTIAZEM HCL 90MG TABLET PO SCH ×4 (06:00→18:00)
[2018-10-15] MEDS: BLOOD SUGAR DIAGNOSTIC STRIP TEST SCH ×4 (06:25→21:55)
[2018-10-15] MEDS: ALBUTEROL (0.083%) 2.5MG/3ML NEB HHN PRN ×3 (07:14→20:23)
[2018-10-15 08:00] VITALS: BP 125/68
[2018-10-15 08:02] LABS: CHLORIDE 99 mEq/L (98-107)
[2018-10-15 08:12] LABS: PHOSPHORUS 2.9 mg/dL (2.5-4.9)
[2018-10-15] MEDS: MINOXIDIL 2.5MG TABLET PO SCH (09:00)
[2018-10-15] MEDS: INSULIN LISPRO 100 UNITS/ML SUBCUT SCH ×4 (09:00→21:54)
[2018-10-15] MEDS: SEVELAMER CARBONATE 800 MG TABLET PO SCH ×3 (10:02→18:05)
[2018-10-15] MEDS: LINAGLIPTIN 5MG TABLET PO SCH (10:03)
[2018-10-15] MEDS: CALCIUM ACETATE 667MG CAPSULE PO SCH ×3 (10:03→18:05)
[2018-10-15] MEDS: PREDNISONE 20MG TABLET PO SCH (10:03)
[2018-10-15] MEDS: APIXABAN 2.5 MG TABLET PO SCH ×2 (10:03→21:50)
[2018-10-15] MEDS: SIMBRINZA OP SCH ×3 (10:04→18:06)
[2018-10-15] MEDS: POLYETHYLENE GLYCOL 3350 (17GM) 1 DOSE PACK PO SCH (10:04)
[2018-10-15] MEDS: FLUTICASONE/VILANTEROL 200-25 BLST.W.DEV ORI SCH (10:04)
[2018-10-15] MEDS: PREDNISOLONE ACETATE 1% OPHTH DROPS 1ML LEFTEYE SCH (10:07)
[2018-10-15 10:33] LABS: PLATELET ESTIMATE NORMAL
[2018-10-15] MEDS ORDERED: ZOLPIDEM TARTRATE 5MG TABLET PO PRN (16:00)
[2018-10-15] MEDS ORDERED: PIPERACILLIN/TAZOBACTAM 3.375GM/50ML PREMIX IV ONE (17:00)
[2018-10-15] MEDS ORDERED: PIPERACILLIN/TAZ 3.375G PREMIX 50 ML IV SCH (17:30)
[2018-10-15] MEDS ORDERED: PIPERACILLIN/TAZ 3.375G PREMIX 50 ML IV NR (18:00)
[2018-10-15] MEDS: LATANOPROST 0.005% OPHTH DROPS 2.5ML RIGHTEYE SCH (18:05)
[2018-10-15 20:00] VITALS: BP 124/87
[2018-10-15] MEDS: BUDESONIDE 0.5MG/2ML NEB HHN SCH (20:46)
[2018-10-15] MEDS: ATORVASTATIN CALCIUM 20MG TABLET PO SCH (21:50)
[2018-10-15] MEDS: PIPERACILLIN/TAZ 2.25G PREMIX 50 ML IV SCH (21:55)
[2018-10-16] MEDS: DILTIAZEM HCL 90MG TABLET PO SCH ×3 (00:21→12:49)
[2018-10-16] MEDS: HYDRALAZINE HCL 50MG TABLET PO SCH ×2 (05:34→12:49)
[2018-10-16] MEDS: PIPERACILLIN/TAZ 2.25G PREMIX 50 ML IV SCH ×2 (05:45→12:49)
[2018-10-16] MEDS: BLOOD SUGAR DIAGNOSTIC STRIP TEST SCH ×2 (05:45→11:51)
[2018-10-16 06:25] LABS: HEMATOCRIT. 32.9 % (36.0-48.0); MEAN CORPUSCULAR HEMOGLOBIN 33.2 pg (28.0-32.0); MEAN CORPUSCULAR VOLUME 99.1 fL (81.0-99.0); MEAN PLATELET VOLUME 9.8 fl (7.4-10.4); PLATELET 288 x1000/uL (130-400); RED BLOOD CELL COUNT 3.32 mill/uL (4.2-5.4)
[2018-10-16] MEDS: BUDESONIDE 0.5MG/2ML NEB HHN SCH (07:38)
[2018-10-16] MEDS: ALBUTEROL (0.083%) 2.5MG/3ML NEB HHN PRN (07:38)
[2018-10-16] MEDS: SIMBRINZA OP SCH (09:00)
[2018-10-16] MEDS: INSULIN LISPRO 100 UNITS/ML SUBCUT SCH ×2 (09:00→12:37)
[2018-10-16] MEDS: FLUTICASONE/VILANTEROL 200-25 BLST.W.DEV ORI SCH (09:00)
[2018-10-16] MEDS: PREDNISOLONE ACETATE 1% OPHTH DROPS 1ML LEFTEYE SCH (09:00)
[2018-10-16] MEDS: APIXABAN 2.5 MG TABLET PO SCH (09:00)
[2018-10-16] MEDS: POLYETHYLENE GLYCOL 3350 (17GM) 1 DOSE PACK PO SCH (09:39)
[2018-10-16] MEDS: AMIODARONE HCL 200 MG TABLET PO SCH (09:40)
[2018-10-16] MEDS: BENZONATATE 100MG CAPSULE PO PRN (09:40)
[2018-10-16] MEDS: CALCIUM ACETATE 667MG CAPSULE PO SCH ×2 (09:41→12:49)
[2018-10-16] MEDS: SEVELAMER CARBONATE 800 MG TABLET PO SCH (09:41)
[2018-10-16] MEDS: LINAGLIPTIN 5MG TABLET PO SCH (09:41)
[2018-10-16] MEDS: MINOXIDIL 2.5MG TABLET PO SCH (09:41)
[2018-10-16] MEDS: PREDNISONE 20MG TABLET PO SCH (09:42)
[2018-10-16 11:11] LABS: PLATELET ESTIMATE NORMAL
[2018-10-16 13:21] LABS: BG BASE EXCESS -3.4 mmol/L (-2.0-2.0); BG DEOXYHEMOGLOBIN 7.6 % (0.0-5.0); BG FRACTION INSPIRED OXYGEN 32; BG HCO3 ACT 18.7 mmol/L (22.0-26.0); BG METHEMOGLOBIN 0.2 % (0.0-1.5); BG OXYGEN SATURATION 92.4 % (92.0-98.5); BG OXYHEMOGLOBIN 92.2 % (94.0-97.0); BG PCO2 25.8 mmHg (35.0-45.0); BG PH 7.478 (7.350-7.450); BG PO2 64.7 mmHg (75.0-100.0); BG SAMPLE SITE LEFT BRACHIAL; BG TOTAL HEMOGLOBIN 12.1 g/dL (12.0-18.0); BG VENT MODE NASAL CANNULA
== END 2018-10-16 13:20 | disposition short-term general hospital (02) | DRG 291 ==
PROVIDERS: ADMIT Physical Medicine & Rehabilitation Spinal Cord Injury Medicine; ATTEND Internal Medicine
PROC: 5A1D70Z Performance of Urinary Filtration, Intermittent, Less than 6 Hours Per Day (ICD-10-PCS; principal; 2018-10-09)
PROC: 5A1D70Z Performance of Urinary Filtration, Intermittent, Less than 6 Hours Per Day (ICD-10-PCS; 2018-10-11)
DX: I13.2 Hypertensive heart and chronic kidney disease with heart failure and with stage 5 chronic kidney disease, or end stage renal disease (principal); N18.6 End stage renal disease; I50.41 Acute combined systolic (congestive) and diastolic (congestive) heart failure; J18.9 Pneumonia, unspecified organism; J96.00 Acute respiratory failure, unspecified whether with hypoxia or hypercapnia; N39.0 Urinary tract infection, site not specified; E87.3 Alkalosis; R53.81 Other malaise; I42.9 Cardiomyopathy, unspecified; J45.909 Unspecified asthma, uncomplicated; I48.0 Paroxysmal atrial fibrillation; R07.89 Other chest pain; G89.29 Other chronic pain; E11.42 Type 2 diabetes mellitus with diabetic polyneuropathy; G47.00 Insomnia, unspecified; E78.00 Pure hypercholesterolemia, unspecified; E11.22 Type 2 diabetes mellitus with diabetic chronic kidney disease; D69.6 Thrombocytopenia, unspecified; D64.9 Anemia, unspecified; B96.20 Unspecified Escherichia coli [E. coli] as the cause of diseases classified elsewhere; R74.0 Nonspecific elevation of levels of transaminase and lactic acid dehydrogenase [LDH]; R26.9 Unspecified abnormalities of gait and mobility; I27.22 Pulmonary hypertension due to left heart disease; E11.39 Type 2 diabetes mellitus with other diabetic ophthalmic complication; H42 Glaucoma in diseases classified elsewhere; M51.35 Other intervertebral disc degeneration, thoracolumbar region; M47.815 Spondylosis without myelopathy or radiculopathy, thoracolumbar region; Z99.2 Dependence on renal dialysis; Z83.3 Family history of diabetes mellitus; Z82.49 Family history of ischemic heart disease and other diseases of the circulatory system; Z98.42 Cataract extraction status, left eye; Z79.01 Long term (current) use of anticoagulants; Z98.41 Cataract extraction status, right eye
CPT/HCPCS: 36415; 36600; 71045; 80048; 82306; 82375; 82607; 82728; 82746; 82805; 82962; 83540; 83550; 83735; 84100; 84134; 84443; 84484; 85027; 87070; 93005; 93970; 94640; 97110; 97112; 97116; 97162; 97166; 97530; 97535; C1893; J1815; J2543; J7050; J7512; J7611; J7626; Q0162; Q0163

== ENCOUNTER 2018-10-16 13:20 | Inpatient (IN) | payer MEDICARE ==
[~2018-10-16] VITALS: Ht 154.9 cm; Wt 51.7 kg
[2018-10-16] VITALS (42 sets, daily range): BP systolic 43–132; BP diastolic 19–80
[~2018-10-16 13:20] MED LIST changes: +ALBU18HF2 IH; -PRED5DRO LEFTEYE; -SEVE800T8 MT
[2018-10-16] MEDS ORDERED: FUROSEMIDE 40MG/4ML VIAL IVP ONE (14:30)
[2018-10-16] MEDS ORDERED: ONDANSETRON HCL 4MG/2ML INJ IV PRN ×2 (14:30→14:45)
[2018-10-16] MEDS ORDERED: IPRATROPIUM/ALBUTEROL 0.5-3(2.5)MG/3ML NEB INH PRN (14:45)
[2018-10-16] MEDS ORDERED: ACETAMINOPHEN 325MG TABLET PO PRN (14:45)
[2018-10-16] MEDS ORDERED: BENZONATATE 100MG CAPSULE PO PRN (14:45)
[2018-10-16] MEDS ORDERED: GUAIFENESIN 200MG/10ML SUGAR FREE UDC PO PRN (14:45)
[2018-10-16] MEDS ORDERED: PIPERACILLIN/TAZ 3.375G PREMIX 50 ML IV SCH (14:45)
[2018-10-16] MEDS ORDERED: AMIODARONE HCL 200 MG TABLET PO SCH (14:45)
[2018-10-16] MEDS ORDERED: CLONIDINE 0.1MG TABLET PO PRN (14:45)
[2018-10-16] MEDS ORDERED: IPRATROPIUM/ALBUTEROL 0.5-3(2.5)MG/3ML NEB HHN SCH (14:45)
[2018-10-16] MEDS ORDERED: ZOLPIDEM TARTRATE 5MG TABLET PO PRN (14:45)
[2018-10-16] MEDS ORDERED: DOPAMINE 800MG PREMIX (DOUBLE) 250 ML IV ONE (15:39)
[2018-10-16] MEDS ORDERED: VANCOMYCIN 1 G PREMIX 200 ML IV ONE (16:00)
[2018-10-16] MEDS ORDERED: MIDAZOLAM HCL 2 MG/2 ML VIAL IV PRN (16:00)
[2018-10-16 16:29] LABS: BG BASE EXCESS -6.7 mmol/L (-2.0-2.0); BG CARBOXYHEMOGLOBIN 0.1 % (0.5-1.5); BG FRACTION INSPIRED OXYGEN 50; BG OXYHEMOGLOBIN 93.9 % (94.0-97.0); BG PCO2 24.7 mmHg (35.0-45.0); BG PH 7.428 (7.350-7.450); BG PO2 74.3 mmHg (75.0-100.0); BG SAMPLE SITE LEFT RADIAL; BG TIDAL VOLUME(mL) 450 mL; BG TOTAL HEMOGLOBIN 12.5 g/dL (12.0-18.0); BG VENT MODE VENT - A/C; BG VENT RATE 24 set
[2018-10-16] MEDS ORDERED: VANCOMYCIN 1 G PREMIX 200 ML IV NR (17:00)
[2018-10-16] MEDS ORDERED: CEFEPIME 1,000 MG in DEXTROSE 5% WATER 50 ML IV NR (17:00)
[2018-10-16] MEDS ORDERED: NOREPINEPHRINE 16 MG in DEXT 5% WATER 234 ML IV PRN (17:15)
[2018-10-16] MEDS: DOPAMINE 400MG/250ML PREMIX 250 ML IV PRN ×3 (17:56→22:41)
[2018-10-16] MEDS ORDERED: DILTIAZEM HCL 90MG TABLET PO SCH (18:00)
[2018-10-16] MEDS ORDERED: PHENYLEPHRINE 40 MG in DEXT 5% WATER 246 ML IV PRN (18:15)
[2018-10-16] MEDS ORDERED: APIXABAN 2.5 MG TABLET PO SCH (21:00)
[2018-10-16] MEDS ORDERED: LATANOPROST 0.005% OPHTH DROPS 2.5ML RIGHTEYE SCH (21:00)
[2018-10-16] MEDS ORDERED: ATORVASTATIN CALCIUM 20MG TABLET PO SCH (21:00)
[2018-10-16] MEDS ORDERED: HYDRALAZINE HCL 50MG TABLET PO SCH (22:00)
[2018-10-16] MEDS ORDERED: HYDROCORTISONE SOD SUCCINATE 100 MG/2 ML VIAL IV SCH (22:00)
[2018-10-16] MEDS ORDERED: SODIUM CHLORIDE 0.9% INJ 3ML FLUSH IVF SCH (22:00)
[2018-10-16] MEDS ORDERED: EPINEPHRINE 1 MG in SODIUM CHLORIDE 0.9% 249 ML IV PRN (22:30)
[2018-10-16] MEDS ORDERED: VECURONIUM BROMIDE 10 MG/VIAL IV ONE (23:00)
[2018-10-16] MEDS ORDERED: EPINEPHRINE 0.1MG/ML (1:10,000) 10ML SYR ONE ×2 (23:00→23:35)
[2018-10-16] MEDS ORDERED: CALCIUM CHLORIDE 1GM/10ML SYR IV ONE ×2 (23:00→23:35)
[2018-10-16] MEDS ORDERED: SODIUM CHLORIDE 0.9% 10ML VIAL ONE (23:00)
[2018-10-16] MEDS ORDERED: SODIUM BICARBONATE 8.4% 1 MEQ/ML 50ML SYR IV ONE ×2 (23:00→23:35)
[2018-10-16] MEDS ORDERED: ETOMIDATE 2MG/ML 10ML VIAL IV ONE (23:00)
[2018-10-17] MEDS ORDERED: MINOXIDIL 2.5MG TABLET PO SCH (09:00)
[2018-10-17] MEDS ORDERED: AMIODARONE HCL 200 MG TABLET PO SCH (09:00)
[2018-10-17] MEDS ORDERED: FLUTICASONE/VILANTEROL 200-25 BLST.W.DEV ORI SCH (09:00)
[2018-10-17] MEDS ORDERED: PREDNISONE 20MG TABLET PO SCH (09:00)
[2018-10-17] MEDS ORDERED: CEFEPIME 1,000 MG in DEXTROSE 5% WATER 50 ML IV SCH (09:00)
[2018-10-17] MEDS ORDERED: POLYETHYLENE GLYCOL 3350 (17GM) 1 DOSE PACK PO SCH (09:00)
== END 2018-10-17 | disposition expired | DRG 208 ==
LOC: 3WST 13:20 → CVICU 16:00
PROVIDERS: ADMIT Internal Medicine; ATTEND Internal Medicine
PROC: 5A1935Z Respiratory Ventilation, Less than 24 Consecutive Hours (ICD-10-PCS; principal; 2018-10-16)
PROC: 5A12012 Performance of Cardiac Output, Single, Manual (ICD-10-PCS; 2018-10-16)
PROC: 5A1D70Z Performance of Urinary Filtration, Intermittent, Less than 6 Hours Per Day (ICD-10-PCS; 2018-10-16)
PROC: 0BH18EZ Insertion of Endotracheal Airway into Trachea, Via Natural or Artificial Opening Endoscopic (ICD-10-PCS; 2018-10-16)
DX: J96.21 Acute and chronic respiratory failure with hypoxia (principal); G93.41 Metabolic encephalopathy; N18.6 End stage renal disease; I50.23 Acute on chronic systolic (congestive) heart failure; E87.2 Acidosis; I13.2 Hypertensive heart and chronic kidney disease with heart failure and with stage 5 chronic kidney disease, or end stage renal disease; I48.1 Persistent atrial fibrillation; E87.1 Hypo-osmolality and hyponatremia; E11.22 Type 2 diabetes mellitus with diabetic chronic kidney disease; E11.40 Type 2 diabetes mellitus with diabetic neuropathy, unspecified; I07.1 Rheumatic tricuspid insufficiency; E78.5 Hyperlipidemia, unspecified; E11.36 Type 2 diabetes mellitus with diabetic cataract; I27.20 Pulmonary hypertension, unspecified; I48.0 Paroxysmal atrial fibrillation; R57.0 Cardiogenic shock; Z82.49 Family history of ischemic heart disease and other diseases of the circulatory system; Z83.3 Family history of diabetes mellitus; Z99.2 Dependence on renal dialysis; Z90.49 Acquired absence of other specified parts of digestive tract; Z79.4 Long term (current) use of insulin
CPT/HCPCS: 31500; 36415; 36600; 71045; 82375; 82533; 82805; 82962; 84484; 87070; 87106; 93005; 94002; 94640; C1893; J0692; J1265; J1720; J1940; J2370; J3370; J3490; J7050; J7060